=== PATIENT | male | born 1935 | race Caucasian/White ===

== ENCOUNTER → 2016-03-07 | Outpatient (REF) | payer MEDICARE ==
[~2016-03-07] MED LIST: /TAMS4CA; /WARF2TA; /WARF4TA; ALTA1.25; ALTA5CAP; ASPI1TAB PO; BABY81CH; CALCCHW12; CALCTAB43 PO; CARD4TAB2; CORE3.12; CORE6.25; CORE6.25 PO; COUM1TAB; COUM1TAB14 PO; COUM1TAB17 PO; COUM6TAB PO; COUMADIN; FOLI1TAB2 PO; FOSA35TA; ICAP; LEVO25TA5 PO; PRAV40TA2 PO; RAMI5CA PO; RANI150T PO; TAMS0.4C2 PO; THERGRAN; TRAM50TA2; TYLE325T5 PO; VICO5TAB; VITA100066 PO; VITMTA PO; WARF5VL
== END ==
LOC: M LAB REF 11:52
DX: D59.4 Other nonautoimmune hemolytic anemias (principal)

== ENCOUNTER 2017-10-15 07:23 | Emergency (ER) | payer MEDICARE ==
[2017-10-15] MEDS: LIDOCAINE 1% MDV 20ML VIAL SC (08:30)
[2017-10-15] MEDS: ADACEL/BOOSTRIX VACCINE (DIPHTH/PERTUSS/ACELL/TETANUS)0.5ML SYR (90715) IM (08:30)
[2017-10-15 08:41] LABS: BASO % 0.4 % (0.0-1.0); HEMATOCRIT 50.3 % (42.0-52.0); HEMOGLOBIN 16.7 g/dl (13.5-17.5); IMMATURE GRANULOCYTE % 0.6 % (0-3.0); LYMPH % 4.6 % (24.0-44.0); MEAN CORPUSCULAR HEMOGLOBIN 32.7 pg (27.0-33.0); MEAN CORPUSCULAR HGB CONC 33.2 g/dl (32.0-36.5); MEAN CORPUSCULAR VOLUME 98.4 fl (80.0-96.0); MONO # 0.2 10^3/uL (0.0-0.8); MONO % 4.6 % (0.0-5.0); NEUTROPHILS # 4.5 10^3/uL (1.8-7.7); NEUTROPHILS % 89.8 % (36.0-66.0); RED BLOOD COUNT 5.11 10^6/uL (4.30-6.10); RED CELL DISTRIBUTION WIDTH 13.5 % (11.5-14.5)
[2017-10-15 08:44] LABS: ANION GAP 8 MEQ/L (8-16); BLOOD UREA NITROGEN 30 MG/DL (7-18); CALCIUM LEVEL 9.3 MG/DL (8.8-10.2); CARBON DIOXIDE LEVEL 30 MEQ/L (21-32); CHLORIDE LEVEL 105 MEQ/L (98-107); CPK CREATINE PHOSPHOKINASE 334 U/L (39-308); CREATININE FOR GFR 0.71 MG/DL (0.70-1.30); GLOMERULAR FILTRATION RATE > 60.0 (>35); GLUCOSE, FASTING 105 MG/DL (70-100); POTASSIUM SERUM 4.5 MEQ/L (3.5-5.1); SODIUM LEVEL 143 MEQ/L (136-145); TROPONIN I < 0.02 NG/ML (< 0.10)
[2017-10-15 08:45] LABS: CK-MB VALUE MASS 3.5 NG/ML (<3.6); MB/CK RELATIVE INDEX 1.04 (< OR =4)
[2017-10-15 08:54] LABS: INR 1.61; PROTHROMBIN TIME 19.4 SECONDS (12.1-14.4)
[2017-10-15 08:55] LABS: PARTIAL THROMBOPLASTIN TIME 32.4 SECONDS (25.4-37.6)
[2017-10-15 09:04] LABS: LYMPH # 0.2 10^3/uL (1.5-4.5); PLATELET COUNT, AUTOMATED 79 10^3/uL (150-450); POSITIVE DIFF POS FLAG
[2017-10-15 09:05] LABS: IMMATURE PLATELET FRACTION % 3.6 % (0.0-10.9); PLATELET F 4.2
== END 2017-10-15 12:05 | disposition home or self-care (01) ==
LOC: M ED 07:23
DX: S02.2XXA Fracture of nasal bones, initial encounter for closed fracture (principal); S01.81XA Laceration without foreign body of other part of head, initial encounter; S50.311A Abrasion of right elbow, initial encounter; S50.312A Abrasion of left elbow, initial encounter; W10.1XXA Fall (on)(from) sidewalk curb, initial encounter; Y92.410 Unspecified street and highway as the place of occurrence of the external cause; I44.0 Atrioventricular block, first degree; I44.4 Left anterior fascicular block; I10 Essential (primary) hypertension; Z95.2 Presence of prosthetic heart valve; Z87.828 Personal history of other (healed) physical injury and trauma; Z91.041 Radiographic dye allergy status; I88.8 Other nonspecific lymphadenitis; Z91.013 Allergy to seafood; Z79.01 Long term (current) use of anticoagulants; Z79.82 Long term (current) use of aspirin; Z79.899 Other long term (current) drug therapy
CPT/HCPCS: 90715

== ENCOUNTER → 2017-12-24 | Outpatient (REF) | payer MEDICARE ==
[2017-12-24 13:55] LABS: INR 5.25
[2017-12-24 14:13] LABS: PROTHROMBIN TIME 49.6 SECONDS (12.1-14.4)
== END ==
LOC: M LAB REF 11:46
DX: I48.0 Paroxysmal atrial fibrillation (principal)
CPT/HCPCS: 85610

== ENCOUNTER → 2018-04-05 | Outpatient (REF) | payer MEDICARE ==
[~2018-04-05] MED LIST changes: +ASPI81TA85 PO; -CALCTAB43 PO; +CALCTAB74 PO; +FOLI1TAB11 PO; -FOLI1TAB2 PO; +RAMI1CAP24 PO; -RAMI5CA PO; +VIGA0.02
[2018-04-05 15:31] LABS: PROTHROMBIN TIME 53.4 SECONDS (12.1-14.4)
[2018-04-05 15:41] LABS: INR 5.76
== END ==
LOC: M LAB REF 15:16
PROVIDERS: ATTEND Nurse Practitioner Adult Health
DX: I48.0 Paroxysmal atrial fibrillation (principal); Z79.01 Long term (current) use of anticoagulants

== ENCOUNTER → 2018-05-24 | Outpatient (REF) | payer MEDICARE ==
[2018-05-24 14:59] LABS: INR 4.67; PROTHROMBIN TIME 45.2 SECONDS (12.1-14.4)
== END ==
LOC: M LAB REF 14:26
PROVIDERS: ATTEND Nurse Practitioner Adult Health
DX: I48.0 Paroxysmal atrial fibrillation (principal)

== ENCOUNTER → 2018-06-07 | Outpatient (REF) | payer MEDICARE ==
[~2018-06-07] MED LIST changes: -/TAMS4CA; -/WARF2TA; -/WARF4TA; -ASPI1TAB PO; +ASPI81TA26 PO; +COUM1TAB14; +COUM1TAB16; +FLOM0.4C39
[2018-06-07 17:52] LABS: INR 6.82
== END ==
LOC: M LAB REF 15:06
PROVIDERS: ATTEND Nurse Practitioner Adult Health
DX: I48.0 Paroxysmal atrial fibrillation (principal)

== ENCOUNTER 2018-09-13 15:55 | Inpatient (IN) | payer MEDICARE ==
[~2018-09-13] VITALS: Ht 177.8 cm; Wt 45.3 kg
[~2018-09-13 15:55] MED LIST changes: -ACET650T15 PO; -AMLO5TAB6 PO; -MIRT1TAB15 PO; -PATIENT COMMENTS; -TAMS1CAP17 PO; -WARF-23 PO
--- NOTE | 2018-09-13 16:53 | REP ---
CT brain without contrast: History: Altered mental status. Comparison brain CT study October 18, 2017. CT findings: Preliminary eeg technologist view is unremarkable. Visualized paranasal sinuses are clear. No significant scalp hematoma is seen. No skull fracture or bony destructive lesion is appreciated. There is moderate generalized atrophy. Advanced periventricular white matter changes consistent with small vessel atherosclerosis is seen. These findings are unchanged from the October 18, 2017 prior study. There is no evidence of intracranial hemorrhage, acute infarction, mass, extra-axial fluid collection, or midline shift. Vascular calcifications again noted. Impression: Chronic microvascular periventricular changes. Diffuse atrophy and vascular calcification. No acute intracranial abnormality. Electronically Signed by Saji Heck MD 09/13/2018 04:58 P
[2018-09-13 18:08] LABS: BASO % 0.3 % (0.0-1.0); HEMOGLOBIN 13.6 g/dl (13.5-17.5); LYMPH # 0.6 10^3/uL (1.5-4.5); LYMPH % 9.2 % (24.0-44.0); MEAN CORPUSCULAR HEMOGLOBIN 31.9 pg (27.0-33.0); MEAN CORPUSCULAR HGB CONC 31.6 g/dl (32.0-36.5); MEAN CORPUSCULAR VOLUME 100.9 fl (80.0-96.0); MONO # 0.7 10^3/uL (0.0-0.8); MONO % 9.8 % (0.0-5.0); NEUTROPHILS # 5.5 10^3/uL (1.8-7.7); NEUTROPHILS % 80.1 % (36.0-66.0); PLATELET COUNT, AUTOMATED 169 10^3/uL (150-450); RED BLOOD COUNT 4.26 10^6/uL (4.30-6.10); WHITE BLOOD COUNT 6.8 10^3/uL (4.0-10.0)
[2018-09-13] MEDS ORDERED: WARF-23 PO (18:11)
[2018-09-13] MEDS ORDERED: TAMS1CAP17 PO (18:11)
[2018-09-13] MEDS ORDERED: ACET650T15 PO (18:14)
[2018-09-13] MEDS ORDERED: PATIENT COMMENTS (18:15)
[2018-09-13 18:38] LABS: OSMOLALITY SERUM 303 MOSM/KG (280-301)
[2018-09-13] MEDS ORDERED: NS 1,000 ML IV SCH (18:45)
[2018-09-13 19:10] LABS: ALBUMIN 3.5 GM/DL (3.2-5.2); ALT/SGPT 23 U/L (12-78); BILIRUBIN,DIRECT 0.2 MG/DL (0.0-0.2); BILIRUBIN,TOTAL 0.8 MG/DL (0.2-1.0); BLOOD UREA NITROGEN 20 MG/DL (7-18); CARBON DIOXIDE LEVEL 28 MEQ/L (21-32); CHLORIDE LEVEL 110 MEQ/L (98-107); CK-MB VALUE MASS 7.3 NG/ML (<3.6); CPK CREATINE PHOSPHOKINASE 819 U/L (39-308); CREATININE FOR GFR 0.69 MG/DL (0.70-1.30); GLOMERULAR FILTRATION RATE > 60.0 (>35); GLUCOSE, FASTING 84 MG/DL (70-100); MB/CK RELATIVE INDEX 0.89 (< OR =4); POTASSIUM SERUM 3.8 MEQ/L (3.5-5.1); SODIUM LEVEL 146 MEQ/L (136-145); TOTAL PROTEIN 6.6 GM/DL (6.4-8.2); TROPONIN I 0.21 NG/ML (< 0.10)
--- NOTE | 2018-09-13 19:25 | REP ---
LEFT SHOULDER, THREE VIEWS: Three views left shoulder performed. There is a fracture of the distal clavicle. The clavicular shaft is elevated. The distal end of the clavicle is still well aligned with the acromion. There are mild degenerative changes at the glenohumeral joint. Glenohumeral joint is well aligned. IMPRESSION: Fracture distal clavicle with elevation of the clavicular shaft. Distal end of the clavicle is still aligned with the acromion. Electronically Signed by Seth Knapp MD 09/15/2018 09:10 P
[2018-09-13 20:19] LABS: INR 4.58; PROTHROMBIN TIME 43.6 SECONDS (11.8-14.0)
[2018-09-13] MEDS ORDERED: OLANZapine INTRAMUSCULAR 10 MG VIAL (S0166) IM ONE (20:30)
--- NOTE | 2018-09-13 21:18 | ECGEPIP ---
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
[2018-09-13 22:44] LABS: CK-MB VALUE MASS 6.7 NG/ML (<3.6); MB/CK RELATIVE INDEX 0.75 (< OR =4); TROPONIN I 0.2 NG/ML (< 0.10)
[2018-09-13] MEDS ORDERED: MIRT1TAB15 PO (23:37)
[2018-09-13] MEDS ORDERED: AMLO5TAB6 PO (23:37)
--- NOTE | 2018-09-13 23:54 | HPEPDOC ---
General Date of Admission 09/13/2018 Date of Service: Sep 13, 2018 Attending Physician: SHILPI CEDILLO MD Chief Complaint The patient is a 83-year-old male admitted with a reason for visit of Syncope On Thinners. Source: RN notes reviewed, EMS notes reviewed Exam Limitations: Clinical conditions Timing/Duration: Unsure Severity: Moderate Associated Symptoms: Unobtainable History of Present Illness Patient is an 83-year-old male, brought to the emergency room after he was found by family in his yard at 11:00 this morning. Family state patient has been increasingly confused, not eating well, generalized weakness for about 2 weeks now. He was found on his front lawn, where he had gaby for an unknown amount of time. Patient was unable to provide any histroy due to mental status change. Family members supposedly feel patient is unsafe to continue to live alone. In the ED Head CT showed moderate generalized atrophy, chronic microvascular periventricular changes, diffuse atrophy and calcification, but was negative for acute intracranial abnormality. Left shoulder x-ray showed a fracture of the distal clavicle with clavicular shaft elevation. The distal end of the clavicle was still well aligned with the acromion. Troponin, although abnormal at 0.2 was non-incremental with subsequent troponin been also 0.2. Laboratory data also revealed dehydration with BUN of 20 and sodium of 146. Total creatinine kinase was elevated at 819. Home Medications Scheduled Acetaminophen (Acetaminophen ER) 650 Mg Tablet.er, 1,300 MG PO DAILY, (Reported) Amlodipine Besylate (Amlodipine Besylate) 5 Mg Tablet, 5 MG PO DAILY, (Reported) Aspirin (Aspir 81) 81 Mg Tab, 81 MG PO QHS, (Reported) Cholecalciferol (Vitamin D3) (Vitamin D3) 1,000 Unit Tab, 1,000 UNIT PO DAILY, (Reported) Folic Acid (Folic Acid) 1 Mg Tab, 1 MG PO DAILY, (Reported) Mirtazapine (Mirtazapine) 15 Mg Tab.rapdis, 15 MG PO QHS, (Reported) Multivitamins (Thera M Plus Tablet) 1 Tab Tab, 1 TAB PO DAILY, (Reported) Pravastatin Sodium (Pravastatin Sodium) 40 Mg Tab, 40 MG PO QHS, (Reported) Ranitidine HCl (Ranitidine HCl) 150 Mg Tab, 1 TAB PO BID, (Reported) Tamsulosin Hcl (Tamsulosin HCl) 0.4 Mg Capsule, 0.4 MG PO DAILY, (Reported) Warfarin Sodium (Warfarin Sodium) 5 Mg Tablet, 2.5 MG PO ASDIRECTED, (Reported) FAMILY MEMBERS STATE PATIENT WAS TOLD TO TAKE .5 OF HIS 5MG TABLET TODAY ONLY. DR. CHAUHAN TOLD HIM NOT TO TAKE ANY MORE THIS WEEKEND UNTIL HIS SCHEDULED APPOINTMENT ON SUNDAY. 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, HE LIVES ALONE AND FAMILY IS NOT SURE WHAT OR IF HE TAKES WHAT HE HAS BEEN PRESCRIBED Allergies Coded Allergies: Contrast Media (Verified Allergy, Unknown, 09/15/13) shellfish derived (Verified Allergy, Unknown, 09/13/18) A-FIB/CHADSVASC A-FIB History Current/History of A-Fib/PAF?: Yes Current PO Anticoag Therapy: Yes Review of Systems Other systems Review of systems not completed due to patient's current mental status Physical Examination Other physical findings GENERAL: frail appearing elderly male with sitter at bedside SKIN : Warm, dry intact HEENT: Atraumatic, normocephalic, PERRL, moist mucous membrane CARDIOVASCULAR: Regular rate and rhythm, S1S2, no JVD, no edema, distal pulses + palpable RESP: CTAB, no accessory muscle use noted ABDOMEN: BS+ non distended MS: no joint deformities NEURO: sedated PSYCH: sedated Vital Signs Vital Signs Date Time Temp Pulse Resp B/P (MAP) Pulse Ox O2 Delivery O2 Flow Rate FiO2 09/13/18 22:06 72 09/13/18 22:00 144/73 (96) 92 09/13/18 18:30 18 09/13/18 15:55 96.4 Room Air Laboratory Data Labs 24H Laboratory Tests 2 09/13/18 17:56: Immature Granulocyte % (Auto) 0.6, White Blood Count 6.8, Red Blood Count 4.26L, Hemoglobin 13.6, Hematocrit 43.0, Mean Corpuscular Volume 100.9H, Mean Corpuscular Hemoglobin 31.9, Mean Corpuscular Hemoglobin Concent 31.6L, Red Cell Distribution Width 14.3, Platelet Count 169, Neutrophils (%) (Auto) 80.1H, Lymphocytes (%) (Auto) 9.2L, Monocytes (%) (Auto) 9.8H, Eosinophils (%) (Auto) 0.0, Basophils (%) (Auto) 0.3, Neutrophils # (Auto) 5.5, Lymphocytes # (Auto) 0.6L, Monocytes # (Auto) 0.7, Eosinophils # (Auto) 0.0, Basophils # (Auto) 0.0, Nucleated Red Blood Cells % (auto) 0.0, Anion Gap 8, Glomerular Filtration Rate > 60.0, Osmolality 303H, Calcium Level 9.0, Aspartate Amino Transf (AST/SGOT) 49H, Alanine Aminotransferase (ALT/SGPT) 23, Alkaline Phosphatase 187H, Total Bilirubin 0.8, Direct Bilirubin 0.2, Ammonia 20, Total Creatine Kinase 819H, Creatine Kinase MB 7.3H, Creatine Kinase MB Relative Index 0.89, Troponin I 0.21H, Total Protein 6.6, Albumin 3.5, Albumin/Globulin Ratio 1.13, Thyroid Stimulating Hormone (TSH) 3.600 09/13/18 19:57: Prothrombin Time 43.6H, Prothromb Time International Ratio 4.58 09/13/18 21:58: Total Creatine Kinase 888H, Creatine Kinase MB 6.7H, Creatine Kinase MB Relative Index 0.75, Troponin I 0.20H CBC/BMP Laboratory Tests 09/13/18 17:56 Red Blood Count 4.26 L, Mean Corpuscular Volume 100.9 H, Mean Corpuscular Hemoglobin 31.9, Mean Corpuscular Hemoglobin Concent 31.6 L, Red Cell Distribution Width 14.3, Neutrophils (%) (Auto) 80.1 H, Lymphocytes (%) (Auto) 9 .2 L, Monocytes (%) (Auto) 9.8 H, Eosinophils (%) (Auto) 0.0, Basophils (%) (Auto) 0.3, Neutrophils # (Auto) 5.5, Lymphocytes # (Auto) 0.6 L, Monocytes # (Auto) 0.7, Eosinophils # (Auto) 0.0, Basophils # (Auto) 0.0 Assessment/Plan Syncope and Collapse -Family members report patient has had poor intake for over 2 weeks with increased confusion -Syncope and collapse, possibly due to dehydration and poor oral intake -Continue IV fluids with half-normal saline at 80cc/hr -2-D echocardiogram to evaluate ejection fraction -Troponin trend is flat and non-incremental -Carotid Doppler to assess for vascular competency Supratherapeutic INR -presenting INR 4.8 -hold coumadin till mental status is normalized -check INR daily Hypernatremia - Likely due to Dehydration -Rehydration therapy with half normal saline and labs monitoring Left shoulder fracture -Orthopedic surgery will need to be consulted for evaluation and recommendations -PT/OT consult for assessment of rehabilitation needs -Social work consult for assessment of home environment and possible need for placement ?Dementia/Delirium -Continue one-to-one sitter -Antipsychotic administered in the emergency room with good effect -Reevaluation for need for continuation of same when patient is awake, alert DVT prophylaxis -On coumadin with presenting INR 4,58 -hold Warfarin at this time due to reported dementia and high risk for bleed Advance Directives -At this time patient is full code status pending when he is alert to state wishes or MOLST available for implementation -Anticipate discharge disposition based on PT/OT recommendations, rehab needs Plan / VTE VTE Prophylaxis Ordered?: Yes BUBBA BENDER [facility] Sep 13, 2018 23:53
[2018-09-14] MEDS ORDERED: NS 0.45% 1,000 ML IV SCH (00:30)
[2018-09-14 02:00] VITALS: BP 153/85
[2018-09-14 06:00] VITALS: BP 95/59
[2018-09-14] MEDS ORDERED: HEPARIN SOD (PORCINE) 5000 UNITS/ML VIAL SC SCH (06:00)
--- NOTE | 2018-09-14 06:08 | ECGEPIP ---
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
[2018-09-14 06:21] LABS: HEMATOCRIT 41.4 % (42.0-52.0); HEMOGLOBIN 13.6 g/dl (13.5-17.5); MEAN CORPUSCULAR HEMOGLOBIN 32.7 pg (27.0-33.0); MEAN CORPUSCULAR HGB CONC 32.9 g/dl (32.0-36.5); MEAN CORPUSCULAR VOLUME 99.5 fl (80.0-96.0); PLATELET COUNT, AUTOMATED 160 10^3/uL (150-450); RED BLOOD COUNT 4.16 10^6/uL (4.30-6.10)
[2018-09-14 06:32] LABS: INR 4.33; PROTHROMBIN TIME 41.7 SECONDS (11.8-14.0)
[2018-09-14 06:46] LABS: ALBUMIN 3.1 GM/DL (3.2-5.2); ALT/SGPT 21 U/L (12-78); BILIRUBIN,TOTAL 0.7 MG/DL (0.2-1.0); BLOOD UREA NITROGEN 19 MG/DL (7-18); CALCIUM LEVEL 8.8 MG/DL (8.8-10.2); CARBON DIOXIDE LEVEL 30 MEQ/L (21-32); CHLORIDE LEVEL 111 MEQ/L (98-107); CREATININE FOR GFR 0.55 MG/DL (0.70-1.30); GLOMERULAR FILTRATION RATE > 60.0 (>35); GLUCOSE, FASTING 85 MG/DL (70-100); MAGNESIUM LEVEL 2.3 MG/DL (1.8-2.4); POTASSIUM SERUM 3.1 MEQ/L (3.5-5.1); SODIUM LEVEL 147 MEQ/L (136-145); TOTAL PROTEIN 6.3 GM/DL (6.4-8.2)
[2018-09-14] MEDS ORDERED: POTASSIUM CHLORIDE 10 MEQ SR TABLET PO ONE (08:00)
[2018-09-14 08:51] LABS: CK-MB VALUE MASS 4.1 NG/ML (<3.6); MB/CK RELATIVE INDEX 0.7 (< OR =4); TROPONIN I 0.19 NG/ML (< 0.10)
--- NOTE | 2018-09-14 08:57 | CR ---
DATE OF CONSULTATION: 09/14/2018 SUBJECTIVE: The patient was brought into the emergency room after being found down by his family yesterday morning. He was brought into the emergency department and imaging obtained showed a left distal clavicle fracture and we were consulted this morning for evaluation. No other active orthopedic complaints. source of information is the EMR. OBJECTIVE: The patient is asleep, comfortable in bed. He is not responding to commands at this point, not conversant. Focused examination of his left shoulder: There is ecchymosis diffusely about the shoulder joint. The prominent end of the distal clavicle fracture is palpable, but is not threatening the skin at all. Distally, his fingertips are pink, warm and well-perfused. Gentle range of motion about the ipsilateral elbow, wrist and hand does not elicit any obvious sign of pain and grossly does not show sign of new acute trauma. X-rays of the left shoulder show a 100% displaced distal one-third clavicle fracture. ASSESSMENT: Left distal clavicle fracture. PLAN: For the clavicle, treatment with a sling at this point for comfort is appropriate. Gentle range of motion of the elbow, wrist and hand as tolerated to prevent stiffness. Pain control and follow-up with the orthopedic practice in 1-2 weeks for repeat examination. Follow-up earlier as needed to continue to monitor the skin site and for signs of pending compromise, reconsult earlier although I do not think this is likely to occur at this time. ALEK
[2018-09-14] MEDS ORDERED: amLODIPine 5 MG TAB PO SCH (09:00)
[2018-09-14] MEDS: MULTIVITAMINS/MINERALS THERAP 1 TAB PO SCH (09:57)
[2018-09-14] MEDS: FOLIC ACID 1 MG TAB PO SCH (09:57)
[2018-09-14] MEDS: VITAMIN D 1,000 INTERNATIONAL UNITS TABLET PO SCH (09:57)
[2018-09-14] MEDS: TAMSULOSIN 0.4 MG CAP PO SCH (09:57)
[2018-09-14 14:00] VITALS: BP 149/91
--- NOTE | 2018-09-14 14:23 | REP ---
CAROTID ULTRASOUND: Real-time ultrasound evaluation and duplex Doppler interrogation of the extracranial carotid vasculature is performed. There is mild plaquing and narrowing in both carotid bulbs extending into the internal and external carotid arteries. Luminal narrowing is less than 50%. There is no evidence of hemodynamically significant stenosis of either internal carotid artery. Normal flow velocities are seen. The vertebral arteries demonstrate normal direction of flow. RIGHT LEFT Peak systolic velocity ICA 40.8 cm/s 52 cm/s End diastolic velocity ICA 7.1 cm/s 12.4 cm/s Peak systolic velocity CCA 50.2 cm/s 42.9 cm/s Peak systolic velocity ECA 41.1 cm/s 36.1 cm/s ICA/CCA ratio 0.81 1.21 IMPRESSION: Bilateral luminal narrowing of the internal carotid arteries less than 50%. No evidence of hemodynamically significant stenosis. Electronically Signed by Seth Knapp MD 09/14/2018 02:15 P
[2018-09-14 19:55] LABS: CK-MB VALUE MASS 3.3 NG/ML (<3.6); MB/CK RELATIVE INDEX 0.78 (< OR =4); TROPONIN I 0.12 NG/ML (< 0.10)
[2018-09-14] MEDS: ASPIRIN 81 MG ENTERIC TAB PO SCH (20:37)
[2018-09-14] MEDS: FAMOTIDINE 20 MG TAB PO SCH (20:37)
[2018-09-14] MEDS: PRAVASTATIN 20 MG TAB PO SCH (20:37)
[2018-09-14] MEDS ORDERED: METOPROLOL TART 12.5 MG PER 1/2 TAB PO SCH (21:00)
--- NOTE | 2018-09-14 21:50 | REPVR ---
EXAM: XR Chest, 1 View EXAM DATE/TIME: 09/14/2018 8:42 PM CLINICAL HISTORY: 83 years old, male; Cardiovascular condition or disease; Atrial fibrillation; Additional info: A-fib w/rvr TECHNIQUE: Imaging protocol: XR of the chest, 1 view. COMPARISON: CR Chest, 2 view PA, Lat 10/15/2017 9:06 AM FINDINGS: Lungs: There is central pulmonary vascular congestion. The lung bases are obscured. The upper lungs are clear of infiltrate. There is persistent aspirated barium in the right lower lobe medially. This was present on the prior x-ray. Pleural space: There are moderate bilateral pleural effusions. These were not present on the prior x-ray. Heart/Mediastinum: There is cardiomegaly. Status post valve replacement. Bones/joints: Unremarkable. IMPRESSION: 1. Cardiomegaly, pulmonary vascular congestion and moderate bilateral pleural effusions. 2. Lung bases are obscured by the effusions and cannot be evaluated. The upper lungs are clear of infiltrate. Electronically signed by: Nayan Mckeon On 09/14/2018 21:49:39 PM
[2018-09-14 22:00] VITALS: BP 138/60
--- NOTE | 2018-09-15 01:44 | IPNPDOC ---
Subjective Date Seen The patient was seen on 09/14/18. Subjective Chief Complaint/HPI Patient is pleasantly confused. Does not know that he is in the hospital. Denies any chest pain or SOB or cough. He did complain of soreness in the left shoulder. He has been requiring 2 liters of oxygen. As per his sister and nieces whom i met at bedside he has been deteriorating over the past 1 year. He has become very forgetful in creasing days of confusion sometimes he would recognize them some days not. They would prepare a whole weeks food the put it in his refrigerator so that he would only take the meals out and warm them up in the microwave. But they would come and check that he has not eaten his meals . He does not remember to eat. He has to be offered food and instructed and reminded to eat then only he eats. He has lost a lot of weight. This evening he was noted to have intermittent aflutter on tele and Afib with rvr. I repeated an EKG and cardiac markers. The EKG leds v4 and v5 seems to have been too closely placed so shows a different configuration compared t yesterday. , EKG showed LBBB with Afib with rvr. Patient did not have any complaints. His cardiac makers are coming down. Objective Physical Examination General Exam: Positive: Alert, Cooperative, No Acute Distress, Other (Bitemporal wasting, cachexia) Eye Exam: Positive: Conjunctiva & lids normal; Negative: Sclera icteric ENT Exam: Positive: Atraumatic, Mucous membr. moist/pink, Pharynx Normal Neck Exam: Positive: Supple Chest Exam: Positive: Clear to auscultation, Diminished (at the bases) Heart Exam: Positive: Tachycardic, Irregular Rhythm, Normal S1, Normal S2, Other (click present.) Telemetry: Positive: Atrial fibrillation Abdomen Exam: Positive: Normal bowel sounds, Soft; Negative: Tenderness, Hepatospenomegaly Extremity Exam: Negative: Clubbing, Cyanosis, Edema Psych Exam: Negative: Memory Intact, Oriented x 3 Assessment /Plan Assessment 83 year old male with progressive dementia valve replacement, dysphagia s/p dilatation, Hypertension, hyperlipidemia, BPH, was brought in to the ED after he was found down in his front lawn by his family for an unknown duration. He was admitted for Syncope. Syncope and Collapse due to dehydration form poor oral intake check orthostatics. Also has Afib / Flutter, will continue tele monitor to monitor for any severe bradycardia , SSS, Tachy lamin syndrome. Carotid US no significant stenosis Echo done Hypoxia will get CXR tomorrow if hypxia persists. Afib/Aflutter with RvR will start metoprolol. anticoagulated. Hypokalemia replaced. Left distal clavicular fracture seen by ortho, sling, pain control. Advanced Dementia will need salvage determiner placement. Severe protein Calorie malnutrition due to dementia and advanced age. BMI of 1.47, has bitemporal wasting and generalized wasting Valve replaced status with metallic valve on Coumadin INR supra therapeutic. Coumadin on hold. Hypernatremia Likely due to intravascular Dehydration will continue gentle hydration and will watch for failure. 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 Dilated in 2016 will continue to monitor DVT prophylaxis On coumadin. Advance Directives DNR. Plan/VTE VTE Prophylaxis Ordered?: Yes VS, I&O, 24H, Fishbone Vital Signs/I&O Vital Signs Date Time Temp Pulse Resp B/P (MAP) Pulse Ox O2 Delivery O2 Flow Rate FiO2 09/14/18 22:00 97.9 150 18 138/60 (86) 98 2.0 09/14/18 01:55 Nasal Cannula I&O- Last 24 Hours up to 6 AM 09/15/18 06:00 Intake Total 1457 ml Output Total 100 ml Balance 1357 ml Laboratory Data 24H LABS Laboratory Tests 2 09/14/18 05:35: Nucleated Red Blood Cells % (auto) 0.0, Prothrombin Time 41.7H, Prothromb Time International Ratio 4.33, Anion Gap 6L, Glomerular Filtration Rate > 60.0, Blood Urea Nitrogen 19H, Creatinine 0.55L, Sodium Level 147H, Potassium Level 3.1L, Chloride Level 111H, Carbon Dioxide Level 30, Calcium Level 8.8, Aspartate Amino Transf (AST/SGOT) 47H, Alanine Aminotransferase (ALT/SGPT) 21, Alkaline Phosphatase 174H, Total Bilirubin 0.7, Total Protein 6.3L, Albumin 3.1L, Magnesium Level 2.3, Albumin/Globulin Ratio 0.97L, Procalcitonin 0.05 09/14/18 08:05: Ammonia 20, Total Creatine Kinase 584H, Creatine Kinase MB 4.1H, Creatine Kinase MB Relative Index 0.70, Troponin I 0.19H 09/14/18 16:46: Urine Color MALIA, Urine Appearance CLEAR, Urine pH 5.0, Urine Specific [place] 1.026, Urine Protein 1+H, Urine Glucose (UA) NEGATIVE, Urine Ketones NEGATIVE, Urine Blood 2+H, Urine Nitrite NEGATIVE, Urine Bilirubin NEGATIVE, Urine Urobilinogen 0.2, Urine Leukocyte Esterase NEGATIVE, Urine WBC (Auto) 3, Urine RBC (Auto) 80H, Urine Hyaline Casts (Auto) 0, Urine Bacteria (Auto) NEGATIVE, Urine Squamous Epithelial Cells 1, Urine Mucus (Auto) SMALL, Urine Sperm (Auto) 09/14/18 18:57: Total Creatine Kinase 423H, Creatine Kinase MB 3.3, Creatine Kinase MB Relative Index 0.78, Troponin I 0.12#H CBC/BMP Laboratory Tests 09/14/18 05:35 Red Blood Count 4.16 L, Mean Corpuscular Volume 99.5 H, Mean Corpuscular Hemoglobin 32.7, Mean Corpuscular Hemoglobin Concent 32.9, Red Cell Distribution Width 14.3, Calcium Level 8.8, Aspartate Amino Transf (AST/SGOT) 47 H, Alanine Aminotransferase (ALT/SGPT) 21, Alkaline Phosphatase 174 H, Total Bilirubin 0.7, Total Protein 6.3 L, Albumin 3.1 L DALI RICH MD Sep 15, 2018 01:44
[2018-09-15 02:00] VITALS: BP 161/89
[2018-09-15] MEDS ORDERED: FUROSEMIDE 40 MG/4 ML VIAL (J1940) IV ONE (05:30)
[2018-09-15 06:00] VITALS: BP 155/83
[2018-09-15] MEDS: METOPROLOL TART 25 MG TABLET PO SCH ×3 (06:00→18:53)
[2018-09-15 06:51] LABS: HEMATOCRIT 44.8 % (42.0-52.0); HEMOGLOBIN 14.4 g/dl (13.5-17.5); MEAN CORPUSCULAR HGB CONC 32.1 g/dl (32.0-36.5); MEAN CORPUSCULAR VOLUME 96.6 fl (80.0-96.0); PLATELET COUNT, AUTOMATED 182 10^3/uL (150-450); RED BLOOD COUNT 4.64 10^6/uL (4.30-6.10); WHITE BLOOD COUNT 6.3 10^3/uL (4.0-10.0)
[2018-09-15 07:05] LABS: INR 2.51; PROTHROMBIN TIME 26.9 SECONDS (11.8-14.0)
[2018-09-15 07:41] LABS: BLOOD UREA NITROGEN 15 MG/DL (7-18); CALCIUM LEVEL 9.2 MG/DL (8.8-10.2); CARBON DIOXIDE LEVEL 29 MEQ/L (21-32); CHLORIDE LEVEL 109 MEQ/L (98-107); CREATININE FOR GFR 0.63 MG/DL (0.70-1.30); GLOMERULAR FILTRATION RATE > 60.0 (>35); GLUCOSE, FASTING 86 MG/DL (70-100); MAGNESIUM LEVEL 2.3 MG/DL (1.8-2.4); POTASSIUM SERUM 3.8 MEQ/L (3.5-5.1); SODIUM LEVEL 143 MEQ/L (136-145)
[2018-09-15] MEDS: TAMSULOSIN 0.4 MG CAP PO SCH (08:34)
[2018-09-15] MEDS: FOLIC ACID 1 MG TAB PO SCH (08:34)
[2018-09-15] MEDS: VITAMIN D 1,000 INTERNATIONAL UNITS TABLET PO SCH (08:35)
[2018-09-15] MEDS: MULTIVITAMINS/MINERALS THERAP 1 TAB PO SCH (08:35)
[2018-09-15] MEDS: FAMOTIDINE 20 MG TAB PO SCH ×2 (08:35→20:00)
[2018-09-15] MEDS: ACETAMINOPHEN TAB 650MG DOSE (2X325MG) PO PRN ×2 (08:36→12:41)
[2018-09-15 10:00] VITALS: BP_SYST 127; BP_SYST 165; BP_DIAS 51; BP_DIAS 70
--- NOTE | 2018-09-15 10:04 | ECHO ---
DATE OF SERVICE: 09/14/2018 AGE: 83. REFERRING PROVIDER: BUD Cheema PATIENT LOCATION: Room 4223. REASON FOR THE STUDY: Syncope, abnormal troponin. 2D MEASUREMENTS: IVS: 1.2 cm LV: 5.1 cm LVPW: 1.2 cm LA: 3.7 cm Aorta: 3.2 cm RV: 2.5 cm IVC: 1.3 cm DOPPLER MEASUREMENTS: Peak velocity across the aortic valve: 1.6 m/s Peak velocity across the LVOT: 0.63 m/s Peak gradient across the aortic valve: 10 mmHg Mitral E: 1.1 Mitral A: 0.39 with a ratio of 2.7 Maximum tricuspid valve velocity: 3.6 m/s 2D COMMENTS: 1. Normal left ventricular size with normal left ventricular wall thickness but a moderately depressed global left ventricular systolic function. The estimated left ventricular systolic ejection fraction is 30% to 35%. 2. The left atrium and the right atrium appeared to be mildly enlarged. The right ventricle also appeared to be mildly enlarged but seems to be ese well. 3. The atrial septum appeared to be normal without evidence of defect or shunt. 4. Normal aortic root. 5. No pericardial effusion seen. 6. Mechanical bioprosthetic valve noted in the aortic valve position, leaflet excursion appeared to be normal. Mildly calcified mitral annulus with normal anterior mitral valve leaflet motion. Normal tricuspid valve and pulmonic valve. The proximal pulmonary artery branches were not well visualized. 7. The inferior vena cava was normal in size, central venous pressure might be normal. 8. There was increased echogenicity consistent with smoke noted in the left ventricle, and this is related to blood stasis, putting the patient at high risk to develop intracardiac thrombi. DOPPLER: It detects moderate mitral regurgitation, moderate tricuspid regurgitation, and mild pulmonic regurgitation. There was trace to mild aortic regurgitation with minimal perivalvular leak. IMPRESSION: 1. Moderate global left ventricular systolic dysfunction with regional wall motion abnormalities consistent with probably underlying coronary artery disease. 2. Mechanical prosthetic aortic valve with normal function but with trace to mild aortic regurgitation and possible minimal perivalvular leak. 3. Mildly enlarged left atrium with mitral annulus calcification and moderate mitral regurgitation. 4. Moderate tricuspid regurgitation with moderate pulmonary hypertension and dilated right heart chambers. 5. Mild pulmonic regurgitation. MTDD
[2018-09-15 14:00] VITALS: BP 92/43
--- NOTE | 2018-09-15 15:10 | IPNPDOC ---
Subjective Date Seen The patient was seen on 09/15/18. Subjective Chief Complaint/HPI Pleasantly confused. Does not offer any complaints today. Always wants to get out of the bed and go for a walk. no fever or chills, no chest pain or sob, patient is having difficulty i urination. Will straight cath him if needed. Objective Physical Examination General Exam: Positive: Alert, Cooperative, No Acute Distress, Other (Bitemporal wasting, cachexia) Eye Exam: Positive: Conjunctiva & lids normal; Negative: Sclera icteric ENT Exam: Positive: Atraumatic, Mucous membr. moist/pink, Pharynx Normal Neck Exam: Positive: Supple Chest Exam: Positive: Clear to auscultation, Diminished (at the bases) Heart Exam: Positive: Tachycardic, Irregular Rhythm, Normal S1, Normal S2, Other (click present.) Telemetry: Positive: Atrial fibrillation Abdomen Exam: Positive: Normal bowel sounds, Soft; Negative: Tenderness, Hepatospenomegaly Extremity Exam: Negative: Clubbing, Cyanosis, Edema Psych Exam: Negative: Memory Intact, Oriented x 3 Assessment /Plan Assessment 83 year old male with progressive dementia valve replacement, dysphagia s/p dilatation, Hypertension, hyperlipidemia, BPH, was brought in to the ED after he was found down in his front lawn by his family for an unknown duration. He was admitted for Syncope. Syncope and Collapse may be cardiac Has Afib / Flutter with RVR, valvular heart disease however dehydration form poor oral intake may also have added to the problem. will continue tele monitor to monitor for any severe bradycardia , SSS, Tachy lamin syndrome. Carotid US no significant stenosis Echo done Hypoxia due to CHF exacerbation features of CHF on chest xray though this could be after fluid resuscitation will give lasix Afib/Aflutter with RvR will start metoprolol. anticoagulated. Acute urinary retention needed coude for insertion of brooks Hypokalemia replaced. Left distal clavicular fracture seen by ortho, sling, pain control. Advanced Dementia will need alf placement. Severe protein Calorie malnutrition due to dementia and advanced age. BMI of 1.47, has bitemporal wasting and generalized wasting Valve replaced status with metallic valve on Coumadin INR in therapeutic range. Hypernatremia Likely due to intravascular Dehydration will continue gentle hydration and will watch for failure. 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 Dilated in 2016 will continue to monitor DVT prophylaxis On coumadin. Advance Directives DNR. Plan/VTE VTE Prophylaxis Ordered?: Yes VS, I&O, 24H, Fishbone Vital Signs/I&O Vital Signs Date Time Temp Pulse Resp B/P (MAP) Pulse Ox O2 Delivery O2 Flow Rate FiO2 09/15/18 12:40 128/84 09/15/18 10:00 98.3 78 18 96 2.0 09/14/18 01:55 Nasal Cannula I&O- Last 24 Hours up to 6 AM 09/15/18 06:00 Intake Total 1457 ml Output Total 350 ml Balance 1107 ml Laboratory Data 24H LABS Laboratory Tests 2 09/14/18 16:46: Urine Color MALIA, Urine Appearance CLEAR, Urine pH 5.0, Urine Specific Lane 1.026, Urine Protein 1+H, Urine Glucose (UA) NEGATIVE, Urine Ketones NEGATIVE, Urine Blood 2+H, Urine Nitrite NEGATIVE, Urine Bilirubin NEGATIVE, Urine Urobilinogen 0.2, Urine Leukocyte Esterase NEGATIVE, Urine WBC (Auto) 3, Urine RBC (Auto) 80H, Urine Hyaline Casts (Auto) 0, Urine Bacteria (Auto) NEGATIVE, Urine Squamous Epithelial Cells 1, Urine Mucus (Auto) SMALL, Urine Sperm (Auto) 09/14/18 18:57: Total Creatine Kinase 423H, Creatine Kinase MB 3.3, Creatine Kinase MB Relative Index 0.78, Troponin I 0.12#H 09/15/18 06:35: Nucleated Red Blood Cells % (auto) 0.0, Prothrombin Time 26.9H, Prothromb Time International Ratio 2.51, Anion Gap 5L, Glomerular Filtration Rate > 60.0, Blood Urea Nitrogen 15, Creatinine 0.63L, Sodium Level 143, Potassium Level 3.8#, Chloride Level 109H, Carbon Dioxide Level 29, Calcium Level 9.2, Magnesium Level 2.3 CBC/BMP Laboratory Tests 09/15/18 06:35 Red Blood Count 4.64, Mean Corpuscular Volume 96.6 H, Mean Corpuscular Hemoglobin 31.0, Mean Corpuscular Hemoglobin Concent 32.1, Red Cell Distribution Width 14.2, Calcium Level 9.2 DALI RICH MD Sep 15, 2018 15:10
[2018-09-15] MEDS ORDERED: guaiFENesin SYRUP 200 MG/10 ML UDC PO PRN (15:15)
[2018-09-15] MEDS ORDERED: FUROSEMIDE 20 MG/2 ML VIAL (J1940) IV ONE (16:00)
[2018-09-15] MEDS ORDERED: WARFARIN SOD 3 MG TAB PO SCH (17:00)
[2018-09-15] MEDS: KETOROLAC 30 MG/ML VIAL (J1885) IV PRN (17:55)
[2018-09-15 18:00] VITALS: BP 129/49
--- NOTE | 2018-09-15 19:11 | ECGEPIP ---
[facility] Test Date: 2018-09-14 Pat Name: SUSAN VALENCIA Department: Room: [place] [address] Gender: Male Measurement Technician: SHANNA : 1935 Requested By: DALI RICH Order Number: [id number] Reading MD: Brody Clements Measurements Intervals [place] Rate: 119 P: 151 MI: 179 QRS: QRSD: 138 T: 130 QT: 354 QTc: 499 Interpretive Statements ATRIAL FIBRILLATION WITH A RAPID VENTRICULAR RESPONSE MARKED LEFT AXIS DEVIATION INTRAVENTRICULAR CONDUCTION DELAY/LEFT BUNDLE-BRANCH BLOCK MOST RECENT TRACING ON 09/13/2018 AT 8:00 P.M., HEART RATE IS NOW FASTER Electronically Signed on 09-15-2018 19:11:00 EDT by Brody Clements
[2018-09-15] MEDS: ASPIRIN 81 MG ENTERIC TAB PO SCH (20:00)
[2018-09-15] MEDS: PRAVASTATIN 20 MG TAB PO SCH (20:00)
--- NOTE | 2018-09-15 21:38 | IPN ---
DATE: 09/14/2018 SUBJECTIVE: Patient examined at bedside. No reported issues overnight. He continues to be confused and overall a poor historian, unable to provide much information. Per nursing staff, he is doing well this morning overall. There is no current family in the room to provide further information. OBJECTIVE: PHYSICAL EXAMINATION: VITAL SIGNS: Temperature 97.7, pulse 76, respirations 18, blood pressure 95/59, mean arterial pressure (MAP) of 71, pulse oximetry 92% on 2 liters nasal cannula, which he is on chronically. GENERAL: Resting comfortably in bed, in no acute distress and pleasantly confused. Minimally conversant at baseline, but able to follow commands. Emaciated, frail-appearing elderly male. HEENT: Normocephalic, atraumatic. No visible trauma. Bitemporal wasting. NECK: Supple. Dry mucous membranes. CARDIOVASCULAR: Regular rate and rhythm. S2 louder than S1 with a blowing systolic murmur. RESPIRATIONS: Clear lungs throughout without any adventitious sounds. No wheezing, rhonchi or rales. CHEST WALL: There is significant ecchymosis of the left shoulder region where he fell and has a clavicular fracture. Left shoulder is significantly elevated compared to the right with what appears to be soft, superficial hematoma that is nontender when palpated. ABDOMEN: Normoactive bowel sounds. Soft, nontender, nondistended. Concave. MUSCULOSKELETAL: Decreased range of motion of the left shoulder from the recent fall. Has muscle wasting throughout. Metallurgical Analyst strength equal bilaterally. EXTREMITIES: No peripheral edema or calf tenderness. NEUROLOGIC: Is confused and able to provide minimal information. Does not know person, place or location. LABORATORY DATA: WBC 6, hemoglobin and hematocrit (H and H) 13.6 and 41.4, platelets 160. Sodium 147, potassium 3.1, BUN 19, creatinine 0.55, calcium 8.8, magnesium 2.3. Ammonia 20. CPK down from 888 to 584 this morning. Troponin down from 0.2 to 0.19. Albumin 3.1. IMAGING: On admission, head CT shows no acute intracranial abnormality. Left shoulder x-ray revealed distal clavicular fracture with elevation of the clavicular shaft, with the distal end of the clavicle still aligned with the acromion. Bilateral carotid ultrasound revealed bilateral luminal narrowing, internal carotids less than 50%. There is no significant stenosis. IMPRESSION AND PLAN: 1. Syncope and collapse. Patient has not had any events while he has been hospitalized thus far. No events on telemetry. His cardiac markers are mildly elevated with troponins of 0.21; however, are trending down to 0.19 this morning. Patient does not endorse any chest pain. Carotid ultrasound does not reveal any significant stenosis and CT initially on admission was essentially negative for acute changes. He overall is frail-appearing and his ammonia level is also normal as well as his thyroid. His deconditioning and malnutrition may be contributing factors to his collapse. An echocardiogram has been ordered, which we are currently still awaiting. Urinalysis (UA) is also ordered for a possible urinary tract infection (UTI) causing his symptoms. Continue encouraging oral intake. Physical therapy (PT) is consulted to assist with his functional mobilization. Will also reach out to social work faculty member to see how we can further assist him and his family. 2. Mildly elevated troponin, 0.21; however, stable with 0.19 this morning. Patient does not have any cardiac complaints. He does also have borderline rhabdomyolysis with CPK near 900, which is also trending downwards to 500 this morning. I do not suspect that he has any direct myocardial damage or myocardial strain. Suspicion is higher for these abnormal labs to be musculoskeletal in nature. Will continue monitoring. 3. Hypokalemia. Supplemented. Will reassess. 4. Left distal clavicular fracture. Patient was assessed by orthopedic surgeon. Appreciate input. Currently, there is no surgical intervention and per their recommendations, left shoulder should be in a sling and he will follow up outpatient. 5. Deconditioning and malnutrition. Patient and Family Services (PFS) has been consulted for possible placement. Patient has bitemporal muscle wasting and has a body mass index (BMI) of 14.3 and low albumin at 3.1. Will supplement with Ensure drinks and encourage oral intake. He is overall very frail-appearing. Will also place him on fall precautions, given his recent fall. 6. Mechanical aortic valve replacement times two. Patient is chronically on Coumadin, which is on hold, given his supratherapeutic INR, which is at 4.3 today. Will recheck INR tomorrow. 7. Hyperlipidemia. Continue home aspirin and statin. 8. Gastroesophageal reflux disease (GERD). Continue ranitidine. 9. Hypertension. Controlled, continue amlodipine. 10. Benign prostatic hypertrophy (BPH). Continue Tamsulosin. Deep venous thrombosis (DVT) prophylaxis. Thromboembolitic deterrents (TEDs) and sequentials, as we are holding Coumadin for supratherapeutic INR. DISPOSITION: Continue monitoring on telemetry. Awaiting physical therapy (PT)/occupational therapy (OT), Patient and Family Services (PFS). Attending Note: I have personally seen and examined the patient this am. I agree with the finding and the plan of care as documented above in the resident's note. ALEK
[2018-09-15 22:00] VITALS: BP 124/57
[2018-09-16] VITALS (12 sets, daily range): BP systolic 97–153; BP diastolic 54–88
[2018-09-16] MEDS: METOPROLOL TART 25 MG TABLET PO SCH ×4 (00:05→18:02)
[2018-09-16] MEDS: KETOROLAC 30 MG/ML VIAL (J1885) IV PRN ×2 (01:27→14:14)
[2018-09-16 06:55] LABS: INR 2.97; PROTHROMBIN TIME 30.8 SECONDS (11.8-14.0)
[2018-09-16 06:59] LABS: BLOOD UREA NITROGEN 22 MG/DL (7-18); CALCIUM LEVEL 8.7 MG/DL (8.8-10.2); CARBON DIOXIDE LEVEL 28 MEQ/L (21-32); CHLORIDE LEVEL 107 MEQ/L (98-107); CREATININE FOR GFR 0.72 MG/DL (0.70-1.30); GLOMERULAR FILTRATION RATE > 60.0 (>35); GLUCOSE, FASTING 94 MG/DL (70-100); POTASSIUM SERUM 3.6 MEQ/L (3.5-5.1); SODIUM LEVEL 140 MEQ/L (136-145)
[2018-09-16 07:31] LABS: HEMATOCRIT 38.4 % (42.0-52.0); MEAN CORPUSCULAR HGB CONC 31.5 g/dl (32.0-36.5); MEAN CORPUSCULAR VOLUME 98.5 fl (80.0-96.0); PLATELET COUNT, AUTOMATED 151 10^3/uL (150-450); WHITE BLOOD COUNT 8.1 10^3/uL (4.0-10.0)
[2018-09-16 07:32] LABS: HEMOGLOBIN 12.1 g/dl (13.5-17.5)
[2018-09-16] MEDS ORDERED: HALOPERIDOL 0.5 MG TAB PO SCH (09:00)
[2018-09-16] MEDS: VITAMIN D 1,000 INTERNATIONAL UNITS TABLET PO SCH (09:12)
[2018-09-16] MEDS: FOLIC ACID 1 MG TAB PO SCH (09:12)
[2018-09-16] MEDS: MULTIVITAMINS/MINERALS THERAP 1 TAB PO SCH (09:12)
[2018-09-16] MEDS: FAMOTIDINE 20 MG TAB PO SCH ×2 (09:12→22:35)
[2018-09-16] MEDS: TAMSULOSIN 0.4 MG CAP PO SCH (09:13)
[2018-09-16] MEDS ORDERED: LORazepam 2 MG/ML VIAL (J2060) IV STA (14:37)
--- NOTE | 2018-09-16 16:49 | IPN ---
DATE: 09/16/2018 SUBJECTIVE: Patient examined at bedside with sitter and niece in the room. He is noted to be agitated at times, trying to pull out his IV and moving his left arm that had the fractured clavicle and trying to pull it out of the sling; otherwise he is doing well without any issues. OBJECTIVE: Physical Exam: Vital Signs: Temperature 97.5, pulse 70, respirations 18, blood pressure 122/59, mean arterial pressure (MAP) of 80, pulse oximetry 94% on 2 liters chronic nasal cannula. General: Resting comfortably in his chair, in no acute distress, is pleasantly confused and answers to simple questions, only oriented to his name, not to year or location. Overall, he is an emaciated, frail appearing elderly male, hunched over in chair. HEENT: Normocephalic, atraumatic. Bitemporal wasting. Dry mucous membranes. Neck: Supple. Cardiovascular: Irregular rhythm and rate is controlled, in atrial fibrillation on telemetry. An ejection click is present that coincides with his history of aortic valve replacement. Lungs: Clear throughout without adventitious sounds. No wheezing, rhonchi, or rales. Skin: Significant ecchymosis expanding in his left shoulder, left flank and part of the left upper arm where he recently fell and has a clavicular fracture. No tenderness on palpation to the area. Abdomen: Concave. Normoactive bowel sounds. Soft, nontender. Musculoskeletal: Decreased range of motion of the left shoulder compared to the right from his recent fall. He is able to ambulate out of his chair. Strength intact bilateral lower extremities. Extremities: No peripheral edema or calf tenderness. LABORATORY: WBC 8.1, hemoglobin and hematocrit 12.1 and 38.4, platelets 151. Sodium and potassium 140 and 3.6. BUN and creatinine 22 and 0.72. IMAGING: No new imaging. IMPRESSION AND PLAN: 1. Syncope and collapse. Probably a combination of cardiac , intravascular volume depletion and physical deconditioning. A fib/ aflutter with intermittent episodes of RVR on telemetry. No significant stenosis on carotid ultrasound. Head CT is negative. Echo from this admission reveals an ejection fraction (EF) of 30-35% with underling coronary artery disease signs, mechanical prosthetic aortic valve with normal functioning, moderate mitral regurgitation and tricuspid regurgitation with moderate pulmonary hypertension and mild pulmonic regurgitation. It is possible that his underlying valvular issues may have led to his collapse versus decreased oral intake versus deconditioning. Continue working with physical therapy (PT) and occupational therapy (OT). Given that he lives alone at home, patient and family services (PFS) has been consulted to assist with placement as well. 2. Mild hypertroponinemia that is stable around 0.2. Patient does not have any cardiac complaints. He does have baseline atrial fibrillation versus atrial flutter with an elevated heart rate on admission, which may have led to this. Additionally, musculoskeletal injury from recent fall may be contributing as well. 3. Sundowning and agitation in the setting of Advanced dementia. The patient is requiring a bedside sitter as well as tranquilizers as he has attempted to get out of bed on his own, but he is a high fall risk. He is attempting to pull out his IVs. Will start on small dose Haldol and monitor. 4. Left distal clavicular fracture. Per orthopedics, continue in a sling and followup outpatient. No surgical intervention. Currently working with PT and OT. 5. Supratherapeutic international normalized ratio (INR) on admission. He is chronically on Coumadin for his history of mechanical aortic valve replacement. Goal INR is 2.5 to 3.5 INR was 4.58 on admission and has fallen to therapeutic levels with withholding Coumadin. Will resume Coumadin, monitor. 6. Mechanical aortic valve replacement times two. Chronically on Coumadin, which will resume. 7. Hyperlipidemia. Continue home aspirin and statin. 8. Gastroesophageal reflux disease (GERD). Continue ranitidine. 9. Hypertension, controlled. Continue amlodipine. 10. BPH with acute urinary retention: Difficult Joe placement required a coude. Continue tamsulosin. 11. CAD with Ischemic cardiomyopathy as seen in the echo which shows regional wall motion abnormalities with acute on chronic systolic CHF requiring IV Lasix. EF of 30% to 35%. 12. Deep vein thrombosis (DVT) prophylaxis. Thromboembolism deterrents (TEDs), sequentials and Coumadin. 13. Severe protein Calorie malnutrition due to dementia and advanced age. BMI of 1.47, has bitemporal wasting and generalized wasting. Sever hypoalbuminemia is causing anasarca. 14. 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 Dilated in 2016 will continue to monitor 15. Hypoxia due to Systolic CHF exacerbation features of CHF on chest xray though this could be after fluid resuscitation Advance Directives DNR. DISPOSITION: Continue monitoring on telemetry. PT, OT and PFS, will likely require placement after hospitalization. Attending note: Patient seen and examined by me. I agree with the residents assessment and plan as documented in the note above. ALEK
[2018-09-16] MEDS ORDERED: WARFARIN SOD 3 MG TAB PO SCH (17:00)
[2018-09-16] MEDS: WARFARIN SOD 2 MG TAB PO SCH (18:04)
[2018-09-16] MEDS: PRAVASTATIN 20 MG TAB PO SCH (22:35)
[2018-09-16] MEDS: HALOPERIDOL 0.5 MG TAB PO SCH (22:35)
[2018-09-16] MEDS: ASPIRIN 81 MG ENTERIC TAB PO SCH (22:46)
[2018-09-17] MEDS: METOPROLOL TART 25 MG TABLET PO SCH ×5 (00:59→23:15)
[2018-09-17 06:00] VITALS: BP 140/62
[2018-09-17 06:24] LABS: HEMATOCRIT 36.2 % (42.0-52.0); HEMOGLOBIN 11.9 g/dl (13.5-17.5); MEAN CORPUSCULAR HEMOGLOBIN 32.2 pg (27.0-33.0); MEAN CORPUSCULAR HGB CONC 32.9 g/dl (32.0-36.5); MEAN CORPUSCULAR VOLUME 98.1 fl (80.0-96.0); PLATELET COUNT, AUTOMATED 164 10^3/uL (150-450); RED BLOOD COUNT 3.69 10^6/uL (4.30-6.10); WHITE BLOOD COUNT 5.4 10^3/uL (4.0-10.0)
[2018-09-17 06:41] LABS: BLOOD UREA NITROGEN 21 MG/DL (7-18); CALCIUM LEVEL 8.7 MG/DL (8.8-10.2); CARBON DIOXIDE LEVEL 32 MEQ/L (21-32); CHLORIDE LEVEL 108 MEQ/L (98-107); CREATININE FOR GFR 0.58 MG/DL (0.70-1.30); GLOMERULAR FILTRATION RATE > 60.0 (>35); GLUCOSE, FASTING 76 MG/DL (70-100); POTASSIUM SERUM 3.6 MEQ/L (3.5-5.1); SODIUM LEVEL 143 MEQ/L (136-145)
[2018-09-17 06:53] LABS: INR 3.08; PROTHROMBIN TIME 31.7 SECONDS (11.8-14.0)
[2018-09-17] MEDS: TAMSULOSIN 0.4 MG CAP PO SCH (09:58)
[2018-09-17] MEDS: FOLIC ACID 1 MG TAB PO SCH (09:58)
[2018-09-17] MEDS: FAMOTIDINE 20 MG TAB PO SCH ×2 (09:58→20:20)
[2018-09-17] MEDS: VITAMIN D 1,000 INTERNATIONAL UNITS TABLET PO SCH (09:58)
[2018-09-17] MEDS: MULTIVITAMINS/MINERALS THERAP 1 TAB PO SCH (09:58)
[2018-09-17 10:00] VITALS: BP 149/75
[2018-09-17] MEDS: HALOPERIDOL 0.5 MG TAB PO SCH ×2 (10:24→20:21)
[2018-09-17 14:00] VITALS: BP 128/56
[2018-09-17] MEDS: ASPIRIN 81 MG CHEW TABLET PO SCH (14:22)
[2018-09-17] MEDS: WARFARIN SOD 2 MG TAB PO SCH (16:38)
[2018-09-17 18:00] VITALS: BP 142/74
--- NOTE | 2018-09-17 18:39 | IPN ---
DATE: 09/17/2018 SUBJECTIVE: The patient seen and examined at bedside with sitter and niece in the room. No reported events overnight. He seems to be doing better psychologically after he was started on Haldol standing dose yesterday, which he is tolerating well. He is calm and pleasant today and resting comfortably. OBJECTIVE: PHYSICAL EXAMINATION: VITAL SIGNS: Temperature 97.6, pulse 64, respirations 16, blood pressure (BP) 140/62, mean arterial pressure (MAP) of 88, pulse oximetry 97% on 2 liters chronic nasal cannula. GENERAL: Resting comfortably in his chair in no acute distress, pleasantly conversant. Only alert and oriented to his name, not to location or year. Is able to answer simple questions. HEENT: Temporal wasting. Dry mucous membranes. CARDIOVASCULAR: Irregular rhythm. Rate is controlled, He is in atrial fibrillation at baseline. Ejection click present. LUNGS: Clear throughout without wheezing, rhonchi, or rales. SKIN: Ecchymosis on his left shoulder and flank is improving from prior days with less swelling. ABDOMEN: Concave. Patient is emaciated and frail. Normoactive bowel sounds. MUSCULOSKELETAL: Range of motion is mildly improved in left shoulder compared to prior days. Strength is also improving. EXTREMITIES: No peripheral edema or calf tenderness. LABORATORY DATA: WBC 5.4, hemoglobin and hematocrit 11.9 and 36.2, platelets 164. Sodium and potassium 143 and 3.6. BUN and creatinine 21 and 0.58. INR 3.08. No new imaging. ASSESSMENT AND PLAN: 1. Syncope and collapse, likely multifactorial secondary to dehydration, volume depletion, physical deconditioning, and possibly cardiac given his ejection fraction (EF) of 30-35% with mechanical prosthetic aortic valve and moderate mitral regurgitation and tricuspid regurgitation with moderate pulmonary hypertension and mild pulmonic regurgitation on most recent echo on this admission. He does have chronic atrial fibrillation and atrial flutter with intermittent episodes of rapid ventricular response (RVR) as well; however, no cardiac complaints since his admission. No significant stenosis. Carotid ultrasound and head CT negative. Work with physical therapy (PT)/occupational therapy (OT) and patient, and family services (PFS) to assist with long-term placement versus rehabilitation given he has fall risk and lives alone at home. Unable to care for himself. 2. Decreased oral intake, likely secondary to his advanced dementia. Unable to care for self. Will monitor caloric intake and consider starting supplemental fluids. Should he continue to decline, will consider speaking with family about code status and possible feeding tube. 3. Sundowning with agitation in setting of advanced dementia. Will continue to have a sitter in place. He is improved since starting on standing dose of Haldol. Continue monitoring. 4. Left distal clavicular fracture. Continue supportive care with a sling per orthopedic recommendations and also outpatient clinic in the clinic, working with PT and OT. No plans for surgical intervention. 5. Supratherapeutic INR on admission was at 4.58. He is chronically on Coumadin given his mechanical aortic valve replacement times two with goal INR being 2.5-3.5. He is currently therapeutic, and we have restarted him on lower dose than what he was on prior to admission from 2.5 mg at home, now on 2 mg. Continue daily monitoring. 6. Mild hypertroponinemia on admission. Patient had no cardiac complaints. This may have been secondary to his episodes of atrial fibrillation/atrial flutter with RVR and his additional musculoskeletal injury on admission. No other events on telemetry. 7. Mechanical aortic valve replaced times two, chronically on Coumadin. 8. Hyperlipidemia. Continue aspirin and statin. 9. Gastroesophageal reflux disease (GERD). Continue ranitidine. 10. Hypertension, controlled on Lopressor. 11. BPH with acute urinary retention during this stay. He has had a Joe inserted for comfort. Difficult Joe placement. Required a Coude. Continue Flomax. 12. Coronary artery disease (CAD) with ischemic cardiomyopathy with echo revealing regional wall motion abnormalities with chronic systolic congestive heart failure (CHF) with ejection fraction (EF) 30-35%, on aspirin, statin, beta juan david. 13. Severe protein calorie malnutrition. Body mass index (BMI) at 14 with decreased oral intake., bitemporal wasting, and overall frail appearing. Also has low albumin at 3.1. Baseline dementia and elderly age likely contributing. Will need placement. 14. 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 Has no complaints currently. CODE STATUS: DO NOT RESUSCITATE, DO NOT INTUBATE. DISPOSITION: PFS is assisting with placement. PT and OT recommend rehabilitation. Currently looking into options with family requesting specifically [facility], and we will monitor on telemetry. My faculty preceptor for this patient encounter was physically present during the encounter and was fully available. All aspects of the patient interview, examination, medical decision making process, and medical care plan development were reviewed and approved by the faculty preceptor. The faculty preceptor is aware and concurs with the plan as stated in the body of this note and will attest to such by his/her co-signature. ATTENDING NOTE: I saw and examined the patient. I agree with the finding and the plan of care as documented in the resident's note. ALEK
[2018-09-17] MEDS: PRAVASTATIN 20 MG TAB PO SCH (20:21)
[2018-09-17 22:00] VITALS: BP 129/66
[2018-09-18 02:00] VITALS: BP 126/77
[2018-09-18 06:00] VITALS: BP 146/72
[2018-09-18] MEDS: METOPROLOL TART 25 MG TABLET PO SCH ×4 (06:03→23:44)
[2018-09-18 06:10] LABS: HEMATOCRIT 41.1 % (42.0-52.0); HEMOGLOBIN 13.4 g/dl (13.5-17.5); MEAN CORPUSCULAR HEMOGLOBIN 31.7 pg (27.0-33.0); MEAN CORPUSCULAR HGB CONC 32.6 g/dl (32.0-36.5); MEAN CORPUSCULAR VOLUME 97.2 fl (80.0-96.0); PLATELET COUNT, AUTOMATED 179 10^3/uL (150-450); RED BLOOD COUNT 4.23 10^6/uL (4.30-6.10); WHITE BLOOD COUNT 5.6 10^3/uL (4.0-10.0)
[2018-09-18 06:27] LABS: INR 2.83; PROTHROMBIN TIME 29.6 SECONDS (11.8-14.0)
[2018-09-18 06:33] LABS: BLOOD UREA NITROGEN 17 MG/DL (7-18); CALCIUM LEVEL 9.1 MG/DL (8.8-10.2); CARBON DIOXIDE LEVEL 33 MEQ/L (21-32); CHLORIDE LEVEL 107 MEQ/L (98-107); CREATININE FOR GFR 0.62 MG/DL (0.70-1.30); GLOMERULAR FILTRATION RATE > 60.0 (>35); GLUCOSE, FASTING 84 MG/DL (70-100); POTASSIUM SERUM 4.9 MEQ/L (3.5-5.1); SODIUM LEVEL 141 MEQ/L (136-145)
[2018-09-18] MEDS: FOLIC ACID 1 MG TAB PO SCH (09:07)
[2018-09-18] MEDS: FAMOTIDINE 20 MG TAB PO SCH ×2 (09:07→20:52)
[2018-09-18] MEDS: HALOPERIDOL 0.5 MG TAB PO SCH ×2 (09:07→20:52)
[2018-09-18] MEDS: ASPIRIN 81 MG CHEW TABLET PO SCH (09:07)
[2018-09-18] MEDS: MULTIVITAMINS/MINERALS THERAP 1 TAB PO SCH (09:07)
[2018-09-18] MEDS: TAMSULOSIN 0.4 MG CAP PO SCH (09:07)
[2018-09-18] MEDS: VITAMIN D 1,000 INTERNATIONAL UNITS TABLET PO SCH (09:08)
[2018-09-18 10:00] VITALS: BP 142/66
[2018-09-18] MEDS ORDERED: LORazepam 2 MG/ML VIAL (J2060) As Ordered ONE (14:27)
[2018-09-18] MEDS ORDERED: LORazepam 2 MG/ML VIAL (J2060) IV PRN (15:00)
[2018-09-18 15:12] VITALS: BP 88/51
[2018-09-18] MEDS: WARFARIN SOD 2 MG TAB PO SCH (16:58)
[2018-09-18 16:59] VITALS: BP 120/61
--- NOTE | 2018-09-18 19:05 | IPN ---
DATE: 09/18/2018 SUBJECTIVE: Patient examined at bedside with sitter and physical therapy (PT) in the room. He has no new complaints and is pleasantly confused from his baseline dementia, otherwise doing well. Working with PT, occupational therapy (OT), and patient and family services (PFS) for possible placement. No f/c/n/v/abd pain/cp/sob. OBJECTIVE: PHYSICAL EXAMINATION: VITAL SIGNS: Temperature 96.9, pulse 73, respirations 15, blood pressure (BP) 146/72, mean arterial pressure (MAP) of 96, pulse oximetry 95% on chronic 2 liters nasal cannula. GENERAL: Resting comfortably in his chair. No acute distress. Answers simple questions. Pleasantly confused at his baseline. Elderly, frail appearing, emaciated. HEENT: Bitemporal wasting. Dry mucous membranes. CARDIOVASCULAR: Rate is controlled, irregular rhythm at baseline, atrial fibrillation. Ejection click present consistent with his history of aortic valve replacement. LUNGS: Clear throughout without any adventitious sounds. SKIN: Ecchymosis on left shoulder and flank still present, however, improved. ABDOMEN: Concave. Hypoactive bowel sounds. MUSCULOSKELETAL: Left arm is in a sling given his recent clavicular fracture. He is reportedly able to get out of the chair and ambulate. EXTREMITIES: No peripheral edema, calf tenderness. LABORATORY DATA: WBC 5.6, hemoglobin and hematocrit 13.4 and 41.1, platelets 179. Sodium and potassium 141 and 4.9. BUN and creatinine 17 and 0.62. INR 2.83. ASSESSMENT AND PLAN: 1. Syncope and collapse in the setting of dehydration, physical deconditioning, and possible cardiac. He has not had any events on telemetry or any cardiac complaints while he has been hospitalized; however, he does have an ejection fraction (EF) of 30-35% with a mechanical prosthetic valve and baseline chronic atrial fibrillation and atrial flutter with intermittent episodes of rapid ventricular response (RVR). He is improved his functional status working with PT and OT. Continue therapy and possible rehabilitation on discharge. 2. Decreased oral intake, inability to care for herself. Overall severe protein calorie malnutrition with body mass index (BMI) of 14, bitemporal wasting, frail appearing, low albumin, likely worsened by his baseline dementia and elderly age. He will need placement. PFS is assisting with this. Will start a calorie count and monitor his intake, possible feeding tube down the line. 3. Agitation in the setting of advanced dementia. He has tolerated starting low-dose Haldol, doing well, however, later became agitated again later in the evening, requiring as-needed intravenous (IV) Ativan and a sitter to be restarted. Continue adjusting medications. 4. Left distal clavicular fracture. Per orthopedics, no surgery. Keep arm in sling. Work with PT/OT and outpatient followup with orthopedics. 5. History of mechanical aortic valve replacement times two. He is chronically on Coumadin. His supratherapeutic INR has been within normal since resuming it. Currently is 2.83, within the goal of 2.5-3.5. 6. Hyperlipidemia. Continue aspirin and statin. 7. Gastroesophageal reflux disease (GERD). Continue famotidine. 8. Hypertension, controlled on Lopressor. 9. BPH with acute urinary retention during stay with a difficult Joe insertion requiring a Coude. Continue Flomax and monitoring urine output. 10. Coronary artery disease (CAD) with ischemic cardiomyopathy. Most recent echo revealing wall motion abnormalities with chronic systolic congestive heart failure (CHF) with an EF of 30-35%. Continue aspirin, statin, beta juan david. 11. 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 No gastrointestinal (GI) complaints currently. CODE STATUS: DO NOT RESUSCITATE, DO NOT INTUBATE. DISPOSITION: Work with PT, OT, and PFS for placement. Sitter in place given his outbursts and sundowning. I saw and evaluated the patient. I agree with the findings and plan of care as documented in the above note MTDD
[2018-09-18] MEDS: PRAVASTATIN 20 MG TAB PO SCH (20:52)
[2018-09-18 22:00] VITALS: BP 146/73
[2018-09-19] MEDS: METOPROLOL TART 25 MG TABLET PO SCH ×3 (05:04→17:17)
[2018-09-19 06:00] VITALS: BP 120/68
[2018-09-19 06:19] LABS: HEMOGLOBIN 12.5 g/dl (13.5-17.5); MEAN CORPUSCULAR HEMOGLOBIN 30.9 pg (27.0-33.0); MEAN CORPUSCULAR HGB CONC 32.9 g/dl (32.0-36.5); MEAN CORPUSCULAR VOLUME 94.1 fl (80.0-96.0); PLATELET COUNT, AUTOMATED 182 10^3/uL (150-450); RED BLOOD COUNT 4.04 10^6/uL (4.30-6.10); WHITE BLOOD COUNT 5.9 10^3/uL (4.0-10.0)
[2018-09-19 06:29] LABS: INR 2.26; PROTHROMBIN TIME 24.8 SECONDS (11.8-14.0)
[2018-09-19 06:45] LABS: BLOOD UREA NITROGEN 14 MG/DL (7-18); CALCIUM LEVEL 8.6 MG/DL (8.8-10.2); CARBON DIOXIDE LEVEL 30 MEQ/L (21-32); CHLORIDE LEVEL 107 MEQ/L (98-107); CREATININE FOR GFR 0.47 MG/DL (0.70-1.30); GLOMERULAR FILTRATION RATE > 60.0 (>35); GLUCOSE, FASTING 85 MG/DL (70-100); POTASSIUM SERUM 3.5 MEQ/L (3.5-5.1); SODIUM LEVEL 142 MEQ/L (136-145)
[2018-09-19] MEDS: VITAMIN D 1,000 INTERNATIONAL UNITS TABLET PO SCH (08:40)
[2018-09-19] MEDS: HALOPERIDOL 0.5 MG TAB PO SCH ×2 (08:40→20:57)
[2018-09-19] MEDS: ASPIRIN 81 MG CHEW TABLET PO SCH (08:40)
[2018-09-19] MEDS: MULTIVITAMINS/MINERALS THERAP 1 TAB PO SCH (08:40)
[2018-09-19] MEDS: FAMOTIDINE 20 MG TAB PO SCH ×2 (08:40→20:57)
[2018-09-19] MEDS: FOLIC ACID 1 MG TAB PO SCH (08:41)
[2018-09-19] MEDS: TAMSULOSIN 0.4 MG CAP PO SCH (08:41)
[2018-09-19 10:00] VITALS: BP 120/64
[2018-09-19 14:00] VITALS: BP 148/78
[2018-09-19] MEDS ORDERED: WARFARIN SOD 4 MG TAB PO ONE (17:00)
[2018-09-19 18:00] VITALS: BP 142/73
[2018-09-19] MEDS: PRAVASTATIN 20 MG TAB PO SCH (20:57)
--- NOTE | 2018-09-19 21:35 | IPN ---
DATE: 09/19/2018 SUBJECTIVE: The patient is examined at bedside, is unchanged from prior day. He is in a positive mood, still having poor oral intake. Working with physical therapy (PT), occupational therapy (OT). Patient Family Services (PFS) planning placement versus rehabilitation. No fevers, chills, nausea, vomiting, abdominal pain. Bruising of left shoulder continues to improve. PHYSICAL EXAMINATION: VITAL SIGNS: Temperature 97.7, pulse 67, respirations 17, blood pressure (BP) 120/68, mean arterial pressure (MAP) of 85, pulse oximetry 93% on chronic 2 liters nasal canula. GENERAL: Resting comfortably in his chair , pleasantly confused, only oriented to himself. Emaciated, weak appearing, hunched over in chair. Elderly male. HEENT: Normocephalic, atraumatic. Supple neck. Bitemporal wasting. CARDIOVASCULAR: Rate control. Irregular rhythm with fine atrial fibrillation . Ejection click present consistent with aortic valve replacement history. LUNGS: Clear throughout without abnormal sounds. EXTREMITIES: Ecchymosis left shoulder flank still present, but improving. ABDOMEN: Soft, nontender, nondistended. MUSCULOSKELETAL: The patient was noted to ambulate working with physical therapy (PT). Left arm was in a sling from recent fall and clavicular fracture. Extremities: No peripheral edema or calf tenderness. LABORATORY: White blood count (WBC) 5.9, hemoglobin and hematocrit 12.5 and 38, platelets 186. Sodium and potassium 136, 3.5. BUN and creatinine 14 and 0.47. INR 2.26. No new imaging. ASSESSMENT AND PLAN: 1. Syncope and collapse with dehydration, physical deconditioning and possible cardiac etiology given his baseline history of atrial fibrillation and atrial flutter, episodes of rapid ventricular response and his low ejection fraction of 30 to 35% and mechanical aortic valve, has not had any cardiac complaints or events on monitor here. Continue working with physical therapy (PT), occupational therapy and encourage by mouth intake. 2. Poor oral intake with severe protein calorie malnutrition. Body mass index (BMI) is 14. He is unable to care for himself, lives alone at home. Bitemporal wasting, frail appearing, elderly man with baseline dementia and elderly age, unable to care for himself. Patient Family Services (PFS) assisting with appointments, keep tracks of a calorie count and encourage by mouth intake. 3. Agitation with baseline advanced dementia and sundowning, continues to require a sitter and started on low-dose Haldol, monitored. 4. Left distal clavicular fracture, work with physical therapy (PT) and occupational therapy (OT). Left arm in sling. Orthopedic outpatient followup. 5. History of mechanical aortic valve replacement times two, chronically on Coumadin. INR goal 2.5 to 3.5. See below. 6. Subtherapeutic INR. The patient was initially supra-therapeutic on admission, Coumadin held and that dose is being readjusted. His regular home dose of 2.5 mg a day, will assess tomorrow, with a dose of 3 mg today with his INR at 2.26. 7. Hyperlipidemia. Continue atorvastatin. 8. Gastroesophageal reflux disease (GERD). Continue famotidine. 9. Hypertension. Controlled on Lopressor. 10. Benign prostatic hypertrophy (BPH). Continue Flomax. Monitor urine output. 11. Coronary artery disease with ischemic cardiomyopathy with ejection fraction 30 to 35% on most echocardiogram. Continue aspirin, statin and beta juan david. 12. Deep vein thrombosis (DVT) prophylaxis, Coumadin. CODE STATUS: DO NOT RESUSCITATE, DO NOT INTUBATE. DISPOSITION: Work with physical therapy (PT), occupational therapy and Patient Family Services (PFS) for possible placement versus rehabilitation I saw and evaluated the patient. I agree with the findings and plan of care as documented in the above note MTDD
[2018-09-19 22:00] VITALS: BP 152/72
[2018-09-20] MEDS: METOPROLOL TART 25 MG TABLET PO SCH ×5 (00:54→23:08)
[2018-09-20 06:00] VITALS: BP 151/77
[2018-09-20 06:52] LABS: HEMATOCRIT 42.8 % (42.0-52.0); HEMOGLOBIN 13.9 g/dl (13.5-17.5); MEAN CORPUSCULAR HEMOGLOBIN 32.1 pg (27.0-33.0); MEAN CORPUSCULAR HGB CONC 32.5 g/dl (32.0-36.5); MEAN CORPUSCULAR VOLUME 98.8 fl (80.0-96.0); PLATELET COUNT, AUTOMATED 180 10^3/uL (150-450); RED BLOOD COUNT 4.33 10^6/uL (4.30-6.10); WHITE BLOOD COUNT 5.4 10^3/uL (4.0-10.0)
[2018-09-20 07:03] LABS: INR 1.63; PROTHROMBIN TIME 19.1 SECONDS (11.8-14.0)
[2018-09-20 07:20] LABS: BLOOD UREA NITROGEN 13 MG/DL (7-18); CALCIUM LEVEL 8.2 MG/DL (8.8-10.2); CARBON DIOXIDE LEVEL 26 MEQ/L (21-32); CHLORIDE LEVEL 110 MEQ/L (98-107); CREATININE FOR GFR 0.56 MG/DL (0.70-1.30); GLOMERULAR FILTRATION RATE > 60.0 (>35); GLUCOSE, FASTING 82 MG/DL (70-100); POTASSIUM SERUM 4.2 MEQ/L (3.5-5.1); SODIUM LEVEL 142 MEQ/L (136-145)
[2018-09-20] MEDS: ASPIRIN 81 MG CHEW TABLET PO SCH (09:26)
[2018-09-20] MEDS: VITAMIN D 1,000 INTERNATIONAL UNITS TABLET PO SCH (09:26)
[2018-09-20] MEDS: FOLIC ACID 1 MG TAB PO SCH (09:26)
[2018-09-20] MEDS: TAMSULOSIN 0.4 MG CAP PO SCH (09:26)
[2018-09-20] MEDS: FAMOTIDINE 20 MG TAB PO SCH ×2 (09:26→20:58)
[2018-09-20] MEDS: MULTIVITAMINS/MINERALS THERAP 1 TAB PO SCH (09:26)
[2018-09-20] MEDS: HALOPERIDOL 0.5 MG TAB PO SCH ×2 (09:28→20:58)
[2018-09-20 10:00] VITALS: BP 118/54
--- NOTE | 2018-09-20 13:12 | IPNPDOC ---
Text Note Date of Service The patient was seen on 09/20/18. NOTE SUBJECTIVE: Examined at bedside with sitter in the room. He has been behaving well without any outbursts overnight and this morning per staff. No other issues. Working with PT and OT, with the left shoulder mobility improving. Patient was reportedly wandering in his room overnight, ambulating independently. No fevers, chills, nausea, vomiting, abdominal pain. Bruising of left shoulder continues to improve. PHYSICAL EXAMINATION: VITAL SIGNS: Please see below GENERAL: Resting comfortably in his chair , pleasantly confused with baseline dementia. Frail appearing, hunched over, emaciated HEENT: Normocephalic, atraumatic. Supple neck. Bitemporal wasting. CARDIOVASCULAR: Rate controlled. Irregular rhythm with baseline atrial fibrillation. Ejection click consistent with aortic valve replacement history. LUNGS: Clear throughout without adventitious sounds. EXTREMITIES: Ecchymosis left shoulder flank still present, but improving. ABDOMEN: Soft, nontender, nondistended. MUSCULOSKELETAL: Left shoulder range of motion significantly improved from admission, almost equal to right shoulder range of motion. Left arm in sling. Extremities: No peripheral edema or calf tenderness. LABORATORY: Please see below No new imaging. ASSESSMENT AND PLAN: 1. Syncope and collapse with dehydration, physical deconditioning and possible cardiac etiology given his baseline history of atrial fibrillation and atrial flutter, episodes of rapid ventricular response and his low ejection fraction of 30 to 35% and mechanical aortic valve. He has been stable during this hospitalization, without any recurrent syncope or collapse. Continue PT, OT, likely outpatient rehabilitation. 2. Poor oral intake with severe protein calorie malnutrition. BMI 14, overall is frail, bitemporal wasting, cachectic looking. He is unable to care for himself, lives alone at home. Baseline dementia and elderly age. field services director assisting with placement. Keep calorie count and encourage by mouth intake. 3. Agitation with baseline advanced dementia and sundowning, continues to require a sitter. Started on Haldol during this admission, dose increased, monitor. 4. Left distal clavicular fracture. Continue PT & OT. Was assessed by Ortho on admission, surgical intervention. Outpatient follow-up in clinic. Left arm in sling. 5. History of mechanical aortic valve replacement times two, chronically on Coumadin. INR goal 2.5 to 3.5. See below. 6. Subtherapeutic INR. Initially supra-therapeutic on admission, Coumadin held at that point, and dose being readjusted since its resumption. His regular home dose of 2.5 mg a day. Titrate up and recheck level tomorrow. 7. Hyperlipidemia. Continue atorvastatin. 8. Gastroesophageal reflux disease (GERD). Continue famotidine. 9. Hypertension. Controlled on Lopressor. 10. Benign prostatic hypertrophy (BPH). Continue Flomax. Monitor urine output. 11. Coronary artery disease with ischemic cardiomyopathy with ejection fraction 30 to 35% on most echocardiogram. Continue aspirin, statin and beta juan david. DVT prophylaxis: Coumadin. CODE STATUS: DO NOT RESUSCITATE, DO NOT INTUBATE. DISPOSITION: PT, OT, PFS for placement versus rehabilitation. I saw and evaluated the patient. I agree with the findings and plan of care as documented in the above note VS,Naye, I+O VSNaye, I+O Laboratory Tests 09/20/18 06:35 Red Blood Count 4.33, Mean Corpuscular Volume 98.8 H, Mean Corpuscular Hemoglobin 32.1, Mean Corpuscular Hemoglobin Concent 32.5, Red Cell Distribution Width 14.4, Calcium Level 8.2 L Vital Signs Date Time Temp Pulse Resp B/P (MAP) Pulse Ox O2 Delivery O2 Flow Rate FiO2 09/20/18 12:18 95 126/54 09/20/18 10:00 98.2 18 96 09/15/18 20:00 2.0 09/14/18 01:55 Nasal Cannula I&O- Last 24 Hours up to 6 AM 09/20/18 06:00 Intake Total 310 ml Output Total 925 ml Balance -615 ml EDUARDO IBARRA DO Sep 20, 2018 13:12 HARIS VALLEJO MD Sep 21, 2018 17:46
[2018-09-20 14:00] VITALS: BP 125/80
[2018-09-20] MEDS ORDERED: WARFARIN SOD 4 MG TAB PO ONE (17:00)
[2018-09-20 18:00] VITALS: BP 120/74
[2018-09-20] MEDS: PRAVASTATIN 20 MG TAB PO SCH (20:58)
[2018-09-20 22:00] VITALS: BP 143/74
[2018-09-21] MEDS: METOPROLOL TART 25 MG TABLET PO SCH ×3 (05:41→17:52)
[2018-09-21 05:49] LABS: HEMOGLOBIN 13.3 g/dl (13.5-17.5); MEAN CORPUSCULAR HEMOGLOBIN 32.2 pg (27.0-33.0); MEAN CORPUSCULAR HGB CONC 33.3 g/dl (32.0-36.5); MEAN CORPUSCULAR VOLUME 96.9 fl (80.0-96.0); PLATELET COUNT, AUTOMATED 157 10^3/uL (150-450); RED BLOOD COUNT 4.13 10^6/uL (4.30-6.10); WHITE BLOOD COUNT 6.5 10^3/uL (4.0-10.0)
[2018-09-21 06:00] VITALS: BP 128/74
[2018-09-21 06:02] LABS: INR 2.39; PROTHROMBIN TIME 25.9 SECONDS (11.8-14.0)
[2018-09-21 06:13] LABS: BLOOD UREA NITROGEN 14 MG/DL (7-18); CALCIUM LEVEL 8.4 MG/DL (8.8-10.2); CARBON DIOXIDE LEVEL 27 MEQ/L (21-32); CHLORIDE LEVEL 109 MEQ/L (98-107); GLOMERULAR FILTRATION RATE > 60.0 (>35); GLUCOSE, FASTING 87 MG/DL (70-100); POTASSIUM SERUM 3.8 MEQ/L (3.5-5.1); SODIUM LEVEL 142 MEQ/L (136-145)
[2018-09-21 09:00] VITALS: BP 118/64
[2018-09-21] MEDS: ASPIRIN 81 MG CHEW TABLET PO SCH (11:14)
[2018-09-21] MEDS: FOLIC ACID 1 MG TAB PO SCH (11:14)
[2018-09-21] MEDS: VITAMIN D 1,000 INTERNATIONAL UNITS TABLET PO SCH (11:14)
[2018-09-21] MEDS: HALOPERIDOL 0.5 MG TAB PO SCH ×2 (11:14→20:49)
[2018-09-21] MEDS: FAMOTIDINE 20 MG TAB PO SCH ×2 (11:15→20:49)
[2018-09-21] MEDS: MULTIVITAMINS/MINERALS THERAP 1 TAB PO SCH (11:15)
[2018-09-21] MEDS: TAMSULOSIN 0.4 MG CAP PO SCH (11:15)
--- NOTE | 2018-09-21 12:13 | IPNPDOC ---
Text Note Date of Service The patient was seen on 09/21/18. NOTE SUBJECTIVE: Patient examined at bedside with consider in room. Was noted to remain around in the room overnight again. No other events overnight. Is behaving well without any outbursts. No f/c/n/v/abd pain/cp/sob. PHYSICAL EXAMINATION: VITAL SIGNS: Please see below GENERAL: Resting comfortably, NAD, confused at baseline from dementia. Frail appearing, hunched over, emaciated HEENT: Normocephalic, atraumatic. Supple neck. Bitemporal wasting CARDIOVASCULAR: Rate controlled. Irregular rhythm. Has baseline atrial fibrillation. Ejection click from aortic valve replacement history LUNGS: Clear throughout. No adventitious sounds. EXTREMITIES: Ecchymosis left shoulder flank still present, but improving. Normal ROM in other extremities ABDOMEN: Soft, nontender, nondistended. MUSCULOSKELETAL: Left shoulder range of motion significantly improved from admission and out of sling this am will Extremities: No peripheral edema or calf tenderness. LABORATORY: Please see below No new imaging. ASSESSMENT AND PLAN: 1. Syncope and collapse with dehydration, physical deconditioning and possible cardiac etiology. He has not had any persist during this stay. Continue current PT and OT. No events on telemetry. He has a history of baseline atrial fibrillation and atrial flutter, episodes of rapid ventricular response and low EF of 30 to 35% and mechanical aortic valve. Likely outpatient rehabilitation. 2. Poor oral intake with severe protein calorie malnutrition. Continues to have poor po intake. Likely worsened by baseline dementia. BMI 14, overall is frail, bitemporal wasting, cachectic looking. He is unable to care for himself, lives alone at home. supervisor ship maintenance services assisting with placement. Keep calorie count and encourage by mouth intake. 3. Agitation with baseline advanced dementia and . Started on Haldol during this stay. Mentation improved since increasing it to 0.5 bid. Continue sitter and if stays stable, will dc. 4. Left distal clavicular fracture. ROM improving. Continue PT & OT. Per Ortho recommendation on admission, no surgical intervention, keep left arm in sling. Outpatient follow-up in clinic. 5. History of mechanical aortic valve replacement times two, chronically on Coumadin. INR goal 2.5 to 3.5. See below. 6. Subtherapeutic INR. Initially supra-therapeutic on admission, Coumadin held at that point, and dose being readjusted since its resumption. His regular home dose of 2.5 mg a day. Titrate up and recheck level daily. 7. Hyperlipidemia. Continue atorvastatin. 8. Gastroesophageal reflux disease (GERD). Continue famotidine. 9. Hypertension. Controlled on Lopressor. 10. Benign prostatic hypertrophy (BPH). Continue Flomax. Monitor urine output. 11. Coronary artery disease with ischemic cardiomyopathy with ejection fraction 30 to 35% on most echocardiogram. Continue aspirin, statin and beta juan david. DVT prophylaxis: Coumadin. CODE STATUS: DO NOT RESUSCITATE, DO NOT INTUBATE. DISPOSITION: PT, OT, PFS for placement versus subacute rehabilitation. I saw and evaluated the patient. I agree with the findings and plan of care as documented in the above note Naye VAZQUEZ, I+O Naye VAZQUEZ I+O Laboratory Tests 09/21/18 05:41 Red Blood Count 4.13 L, Mean Corpuscular Volume 96.9 H, Mean Corpuscular Hemoglobin 32.2, Mean Corpuscular Hemoglobin Concent 33.3, Red Cell Distribution Width 14.5, Calcium Level 8.4 L Vital Signs Date Time Temp Pulse Resp B/P (MAP) Pulse Ox O2 Delivery O2 Flow Rate FiO2 09/21/18 09:00 97.9 69 20 118/64 (82) 97 09/15/18 20:00 2.0 I&O- Last 24 Hours up to 6 AM 09/21/18 06:00 Intake Total 356 ml Output Total 1070 ml Balance -714 ml EDUARDO IBARRA DO Sep 21, 2018 12:13 HARIS VALLEJO MD Sep 21, 2018 17:57
[2018-09-21 14:00] VITALS: BP 110/60
[2018-09-21] MEDS: WARFARIN SOD 2.5 MG TAB PO SCH (17:50)
[2018-09-21 18:00] VITALS: BP 150/76
[2018-09-21] MEDS: PRAVASTATIN 20 MG TAB PO SCH (20:49)
[2018-09-21 22:00] VITALS: BP 133/75
[2018-09-22] VITALS (7 sets, daily range): BP systolic 108–156; BP diastolic 59–77
[2018-09-22] MEDS: METOPROLOL TART 25 MG TABLET PO SCH ×5 (00:33→23:59)
[2018-09-22 06:42] LABS: INR 2.82; PROTHROMBIN TIME 29.6 SECONDS (11.8-14.0)
[2018-09-22] MEDS: ASPIRIN 81 MG CHEW TABLET PO SCH (09:00)
[2018-09-22] MEDS: TAMSULOSIN 0.4 MG CAP PO SCH (11:03)
[2018-09-22] MEDS: FOLIC ACID 1 MG TAB PO SCH (11:03)
[2018-09-22] MEDS: HALOPERIDOL 0.5 MG TAB PO SCH (11:03)
[2018-09-22] MEDS: MULTIVITAMINS/MINERALS THERAP 1 TAB PO SCH (11:04)
[2018-09-22] MEDS: FAMOTIDINE 20 MG TAB PO SCH ×2 (11:04→21:07)
[2018-09-22] MEDS: VITAMIN D 1,000 INTERNATIONAL UNITS TABLET PO SCH (11:19)
--- NOTE | 2018-09-22 14:34 | IPNPDOC ---
Date Seen The patient was seen on 09/22/18. Progress Note SUBJECTIVE: Patient examined at bedside patient is oriented to person but not place time or situation. No behavioral issues noted overnight. Is behaving well without any outbursts. No f/c/n/v/abd pain/cp/sob. PHYSICAL EXAMINATION: VITAL SIGNS: Please see below GENERAL: Resting comfortably in bed watching television eating breakfast, NAD, confused at baseline from dementia. Frail appearing, hunched over, emaciated HEENT: Normocephalic, atraumatic. Supple neck. Bitemporal wasting CARDIOVASCULAR: Rate controlled. Irregular rhythm. Has baseline atrial fibrillation. Ejection click from aortic valve replacement history LUNGS: Clear throughout. No adventitious sounds. EXTREMITIES: Ecchymosis left shoulder flank still present, but improving. Normal ROM in other extremities ABDOMEN: Soft, nontender, nondistended. MUSCULOSKELETAL: Left shoulder range of motion significantly improved from admission and out of sling this am will Extremities: No peripheral edema or calf tenderness.SUBJECTIVE: Patient examined at bedside with consider in room. Was noted to remain around in the room overnight again. No other events overnight. Is behaving well without any outbursts. No f/c/n/v/abd pain/cp/sob. PHYSICAL EXAMINATION: VITAL SIGNS: Please see below GENERAL: Resting comfortably, NAD, confused at baseline from dementia. Frail appearing, hunched over, emaciated HEENT: Normocephalic, atraumatic. Supple neck. Bitemporal wasting CARDIOVASCULAR: Rate controlled. Irregular rhythm. Has baseline atrial fibrillation. Ejection click from aortic valve replacement history LUNGS: Clear throughout. No adventitious sounds. EXTREMITIES: Ecchymosis left shoulder flank still present, but improving. Normal ROM in other extremities ABDOMEN: Soft, nontender, nondistended. MUSCULOSKELETAL: Left shoulder range of motion significantly improved from admission and out of sling this am will Extremities: No peripheral edema or calf tenderness. Wasted LABORATORY: Please see below No new imaging. ASSESSMENT AND PLAN: 1. Syncope and collapse with dehydration, physical deconditioning. He has not had any further episodes during this stay in the hospital. Continue current PT and OT. He has a history of baseline atrial fibrillation and atrial flutter. He will Likely require longterm placement 2. Poor oral intake with severe protein calorie malnutrition. Continues to have poor po intake. Likely worsened by baseline dementia. BMI 14, overall is frail, bitemporal wasting, cachectic looking. He is unable to care for himself, lives alone at home. administrative services coordinator assisting with longterm placement. Keep calorie count and encourage by mouth intake. 3. Agitation with baseline advanced dementia and sundowning. Started on Haldol during this stay. Mentation improved since increasing it to 0.5 bid. After up ti tration of his Haldol will attempt to discontinue Excedrin see how he does overnight this evening 4. Left distal clavicular fracture. ROM improving. Continue PT & OT. Per Ortho recommendation on admission, no surgical intervention, keep left arm in sling. Outpatient follow-up in clinic. 5. History of mechanical aortic valve replacement times two, chronically on Coumadin. INR goal 2.5 to 3.5. Therapeutic 6. Hyperlipidemia. Continue atorvastatin. 7. Gastroesophageal reflux disease (GERD). Continue famotidine. 8. Hypertension. Controlled on Lopressor. 9. Benign prostatic hypertrophy (BPH). Continue Flomax. 11. Coronary artery disease with ischemic cardiomyopathy with ejection fraction 30 to 35% on most echocardiogram. Continue aspirin, statin and beta juan david. Curiously he is not on an MINDI inhibitor loop diuretic or spironolactone. His lung status appears to be optimized. It is unclear to me the reasons for this will defer to his outpatient branch operations coordinator for follow his prosthetic valves as well 12. Atrial fibrillation/flutter: Rate controlled with Lopressor anticoagulated with Coumadin DVT prophylaxis: Coumadin. CODE STATUS: DO NOT RESUSCITATE, DO NOT INTUBATE. DISPOSITION: longterm placement VS, I&O[facility]/I&O Vital Signs Date Time Temp Pulse Resp B/P (MAP) Pulse Ox O2 Delivery O2 Flow Rate FiO2 09/22/18 10:00 97.9 69 20 108/59 (47) 93 I&O- Last 24 Hours up to 6 AM 09/22/18 06:00 Intake Total 870 ml Output Total 910 ml Balance -40 ml Laboratory Data 24H LABS Laboratory Tests 2 09/22/18 05:18: Prothrombin Time 29.6H, Prothromb Time International Ratio 2.82 HARIS VALLEJO MD Sep 22, 2018 14:34
[2018-09-22] MEDS: WARFARIN SOD 2.5 MG TAB PO SCH (17:31)
[2018-09-22] MEDS: PRAVASTATIN 20 MG TAB PO SCH (21:07)
[2018-09-22] MEDS: risperiDONE 0.5 MG TAB PO SCH (21:07)
--- NOTE | 2018-09-23 00:01 | REPVR ---
EXAM: US Duplex Left Upper Extremity Veins, Limited EXAM DATE/TIME: 09/22/2018 11:10 PM CLINICAL HISTORY: 83 years old, male; Edema, localized; Upper extremity, left; Additional info: Redness and warmth left hand TECHNIQUE: Imaging protocol: Real-time Duplex ultrasound of the Left Upper Extremity with 2-D perez scale, color Doppler flow and spectral waveform analysis with image documentation. Limited exam focused on the left upper extremity veins. COMPARISON: US DUPLEX EXT UPPER VEINS UNILATE 07/28/2015 10:07 AM FINDINGS: Left deep veins: Internal jugular, subclavian, axillary and brachial veins patent without thrombus. Normal compressibility, augmentation response and/or Doppler waveforms. Left superficial veins: Visualized cephalic and basilic veins patent without thrombus. Soft tissues: Unremarkable. IMPRESSION: No sonographic evidence of deep vein thrombosis. Electronically signed by: Timbo Merritt On 09/23/2018 00:01:21 AM
[2018-09-23 02:00] VITALS: BP 154/72
[2018-09-23] MEDS: METOPROLOL TART 25 MG TABLET PO SCH ×3 (05:44→17:05)
[2018-09-23 06:00] VITALS: BP 140/74
--- NOTE | 2018-09-23 07:54 | ECGEPIP ---
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
[2018-09-23 07:59] LABS: HEMOGLOBIN 12.3 g/dl (13.5-17.5); MEAN CORPUSCULAR HEMOGLOBIN 31.9 pg (27.0-33.0); MEAN CORPUSCULAR HGB CONC 32.4 g/dl (32.0-36.5); MEAN CORPUSCULAR VOLUME 98.4 fl (80.0-96.0); PLATELET COUNT, AUTOMATED 173 10^3/uL (150-450); RED BLOOD COUNT 3.86 10^6/uL (4.30-6.10)
[2018-09-23 08:15] LABS: INR 2.62; PROTHROMBIN TIME 27.9 SECONDS (11.8-14.0)
[2018-09-23 08:18] LABS: BLOOD UREA NITROGEN 16 MG/DL (7-18); CALCIUM LEVEL 8.5 MG/DL (8.8-10.2); CARBON DIOXIDE LEVEL 29 MEQ/L (21-32); CHLORIDE LEVEL 108 MEQ/L (98-107); CREATININE FOR GFR 0.69 MG/DL (0.70-1.30); GLOMERULAR FILTRATION RATE > 60.0 (>35); GLUCOSE, FASTING 106 MG/DL (70-100); POTASSIUM SERUM 3.7 MEQ/L (3.5-5.1); SODIUM LEVEL 142 MEQ/L (136-145)
[2018-09-23] MEDS: VITAMIN D 1,000 INTERNATIONAL UNITS TABLET PO SCH (08:48)
[2018-09-23] MEDS: MULTIVITAMINS/MINERALS THERAP 1 TAB PO SCH (08:48)
[2018-09-23] MEDS: risperiDONE 0.5 MG TAB PO SCH ×2 (08:48→21:45)
[2018-09-23] MEDS: ASPIRIN 81 MG CHEW TABLET PO SCH (08:48)
[2018-09-23] MEDS: FOLIC ACID 1 MG TAB PO SCH (08:48)
[2018-09-23] MEDS: FAMOTIDINE 20 MG TAB PO SCH ×2 (08:48→21:45)
[2018-09-23] MEDS: TAMSULOSIN 0.4 MG CAP PO SCH (08:48)
[2018-09-23 10:58] VITALS: BP 116/84
[2018-09-23 14:00] VITALS: BP 140/20
[2018-09-23] MEDS: WARFARIN SOD 2.5 MG TAB PO SCH (17:05)
--- NOTE | 2018-09-23 17:36 | IPNPDOC ---
Date Seen The patient was seen on 09/23/18. Progress Note SUBJECTIVE: Patient is a 83-year-old male seen and examined. Continue to be oriented to person but not place time or situation, at baseline No behavioral issues noted overnight. No fevers, chills, nausea, vomiting, abdominal pain, chest pain, shortness of breath. OBJECTIVE PHYSICAL EXAMINATION: VITAL SIGNS: Please see below. GENERAL: Resting comfortably, NAD, confused at baseline from dementia. Frail appearing, hunched over, emaciated HEENT: Normocephalic, atraumatic. Bitemporal wasting CARDIOVASCULAR: Rate controlled. Irregular rhythm. Has baseline atrial fibrillation. Ejection click from aortic valve replacement history RESPIRATORY: CTA-B ABDOMINAL: Soft, nontender, nondistended. Positive bowel sounds in all 4 quadrants EXTREMITIES:Ecchymosis left shoulder flank still present, but improving. Normal ROM in other extremities. NEUROLOGICAL: confused at baseline from dementia LABORATORY DATA, IMAGING STUDIES, MICROBIOLOGY: Please see below. DVT prophylaxis ordered?: yes ASSESSMENT AND PLAN: This is a 83 year old male admitted for Syncope, collapse with dehydration and physical deconditioning PROBLEMS: Syncope, collapse with dehydration and physical deconditioning -no any further episodes since admission. -c/w PT and OT. -history of baseline atrial fibrillation and atrial flutter -Likely require chcf placement Poor oral intake with severe protein calorie malnutrition -BMI 14 -Continues to have poor po intake -Likely worsened by baseline dementia -unable to care for himself, lives alone at home -real estate services coordinator assisting with chcf placement -Keep calorie count and encourage by mouth intake. Agitation with baseline advanced dementia and . c/w with Haldol 0.5 bid, mentation improved with this dose Left distal clavicular fracture -c/w PT & OT -Per Ortho recommendation on admission, no surgical intervention, keep left arm in sling -Outpatient follow-up in clinic. History of mechanical aortic valve replacement x two chronically on Coumadin. -INR goal 2.5 to 3.5. -Therapeutic Hyperlipidemia -c/w atorvastatin Gastroesophageal reflux disease (GERD). -c/w famotidine Hypertension. -c/w Lopressor Benign prostatic hypertrophy (BPH) -c/w Flomax. 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 - not on an MINDI inhibitor loop diuretic or spironolactone, will defer to his outpatient band booker for follow his prosthetic valves as well Atrial fibrillation/flutter -Rate controlled with Lopressor -anticoagulated with Coumadin DVT ppx: Coumadin I saw and evaluated the patient. I agree with the findings and plan of care as documented in the above note VS, I&O, 24H, Fishbone Vital Signs/I&O Vital Signs Date Time Temp Pulse Resp B/P (MAP) Pulse Ox O2 Delivery O2 Flow Rate FiO2 09/23/18 17:05 75 128/74 09/23/18 14:00 97.9 22 97 09/22/18 08:00 2.0 I&O- Last 24 Hours up to 6 AM 09/23/18 06:00 Intake Total 310 ml Output Total 775 ml Balance -465 ml Laboratory Data 24H LABS Laboratory Tests 2 09/23/18 07:38: Prothrombin Time 27.9H, Prothromb Time International Ratio 2.62 09/23/18 07:40: Nucleated Red Blood Cells % (auto) 0.0, Anion Gap 5L, Glomerular Filtration Rate > 60.0, Blood Urea Nitrogen 16, Creatinine 0.69L, Sodium Level 142, Potassium Level 3.7, Chloride Level 108H, Carbon Dioxide Level 29, Calcium Level 8.5L CBC/BMP Laboratory Tests 09/23/18 07:40 Red Blood Count 3.86 L, Mean Corpuscular Volume 98.4 H, Mean Corpuscular Hemoglobin 31.9, Mean Corpuscular Hemoglobin Concent 32.4, Red Cell Distribution Width 14.8 H, Calcium Level 8.5 L ZHEN STONE DO Sep 23, 2018 17:36 HARIS VALLEJO MD Oct 04, 2018 11:55
[2018-09-23] MEDS: PRAVASTATIN 20 MG TAB PO SCH (21:45)
[2018-09-23 22:00] VITALS: BP 135/65
[2018-09-24] VITALS: BP 137/61
[2018-09-24] MEDS: METOPROLOL TART 25 MG TABLET PO SCH ×5 (00:04→17:03)
[2018-09-24 02:00] VITALS: BP 132/62
[2018-09-24 06:00] VITALS: BP 159/75
[2018-09-24] MEDS: FAMOTIDINE 20 MG TAB PO SCH ×2 (08:06→21:07)
[2018-09-24] MEDS: TAMSULOSIN 0.4 MG CAP PO SCH (08:06)
[2018-09-24] MEDS: risperiDONE 0.5 MG TAB PO SCH ×2 (08:06→21:07)
[2018-09-24] MEDS: FOLIC ACID 1 MG TAB PO SCH (08:06)
[2018-09-24] MEDS: VITAMIN D 1,000 INTERNATIONAL UNITS TABLET PO SCH (08:06)
[2018-09-24] MEDS: ASPIRIN 81 MG CHEW TABLET PO SCH (08:06)
[2018-09-24] MEDS: MULTIVITAMINS/MINERALS THERAP 1 TAB PO SCH (08:06)
[2018-09-24 08:31] LABS: INR 2.13; PROTHROMBIN TIME 23.6 SECONDS (11.8-14.0)
[2018-09-24 10:00] VITALS: BP 130/64
--- NOTE | 2018-09-24 13:38 | IPNPDOC ---
Text Note Date of Service The patient was seen on 09/24/18. NOTE Subjective: Patient is an 83-year-old male with a PMHx of HTN, DLP, BPH, GERD, who presented to the ED with increasing confusion and generalized weakness. Patient was brought to the emergency room for further evaluation by his family. Patient was admitted to hospitalist service for further evaluation/treatment. Patient was seen and examined at the bedside. Currently has no new complaints. Not fully oriented. Objective: Vitals (See below) General: Lying in bed, no acute distress, comfortable, Awake / Alert HEENT: NC, AT CVS: RRR, +S1S2 Lungs: Fair air entry b/l, -w/r/r Abdomen: Soft, ND, NT Extremities: - Edema, - Calf tenderness Assessment and plan: Syncope, collapse with dehydration and physical deconditioning - No further episodes since admission - c/w PT and OT - [facility] need [place] [facility] on discharge Agitation with baseline advanced dementia and sundowning - s/p Haldol - c/w Risperidone Poor oral intake with severe protein calorie malnutrition - BMI 14 with poor oral intake; worsened by baseline dementia - Unable to care for himself, lives alone at home - Will need [place] [facility] Left distal clavicular fracture - c/w PT & OT - Per Ortho recommendation on admission, no surgical intervention, keep left arm in sling - Outpatient follow-up in clinic. 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 - INR goal 2.5 to 3.5 - Will continue to monitor; slightly sub-therapeutic today Atrial fibrillation/flutter - c/w rate control with metoprolol tartrate - c/w full anticoagulation with Coumadin Hyperlipidemia - c/w pravastatin Benign prostatic hypertrophy - c/w Tamsulosin GERD - c/w Famotidine DVT prophylaxis - c/w full anticoagulation with Coumadin VS,Fishbone, I+O VS, Fishbone, I+O Vital Signs Date Time Temp Pulse Resp B/P (MAP) Pulse Ox O2 Delivery O2 Flow Rate FiO2 09/24/18 10:00 97.0 68 19 130/64 (86) 95 09/22/18 08:00 2.0 I&O- Last 24 Hours up to 6 AM 09/24/18 06:00 Intake Total 515 ml Output Total 950 ml Balance -435 ml THEA NAVA MD Sep 24, 2018 13:38
[2018-09-24 14:00] VITALS: BP 138/70
[2018-09-24] MEDS: WARFARIN SOD 2.5 MG TAB PO SCH (17:03)
[2018-09-24] MEDS: PRAVASTATIN 20 MG TAB PO SCH (21:07)
[2018-09-24 22:00] VITALS: BP 144/79
[2018-09-25] MEDS: METOPROLOL TART 25 MG TABLET PO SCH ×4 (00:12→17:32)
[2018-09-25 02:00] VITALS: BP 142/65
[2018-09-25 06:21] LABS: BASO % 0.4 % (0.0-1.0); HEMOGLOBIN 11.7 g/dl (13.5-17.5); LYMPH # 1.9 10^3/uL (1.5-4.5); LYMPH % 26.4 % (24.0-44.0); MEAN CORPUSCULAR HEMOGLOBIN 32.1 pg (27.0-33.0); MEAN CORPUSCULAR HGB CONC 32.5 g/dl (32.0-36.5); MEAN CORPUSCULAR VOLUME 98.9 fl (80.0-96.0); MONO # 0.7 10^3/uL (0.0-0.8); MONO % 9.8 % (0.0-5.0); NEUTROPHILS # 4.5 10^3/uL (1.8-7.7); NEUTROPHILS % 62.8 % (36.0-66.0); PLATELET COUNT, AUTOMATED 165 10^3/uL (150-450); RED BLOOD COUNT 3.64 10^6/uL (4.30-6.10); WHITE BLOOD COUNT 7.1 10^3/uL (4.0-10.0)
[2018-09-25 06:43] LABS: BLOOD UREA NITROGEN 14 MG/DL (7-18); CALCIUM LEVEL 8.6 MG/DL (8.8-10.2); CARBON DIOXIDE LEVEL 28 MEQ/L (21-32); CHLORIDE LEVEL 108 MEQ/L (98-107); CREATININE FOR GFR 0.55 MG/DL (0.70-1.30); GLOMERULAR FILTRATION RATE > 60.0 (>35); GLUCOSE, FASTING 78 MG/DL (70-100); MAGNESIUM LEVEL 2.4 MG/DL (1.8-2.4); POTASSIUM SERUM 3.9 MEQ/L (3.5-5.1); SODIUM LEVEL 141 MEQ/L (136-145)
[2018-09-25 06:55] VITALS: BP 140/67
[2018-09-25] MEDS: ASPIRIN 81 MG CHEW TABLET PO SCH (08:44)
[2018-09-25] MEDS: FOLIC ACID 1 MG TAB PO SCH (08:44)
[2018-09-25] MEDS: FAMOTIDINE 20 MG TAB PO SCH ×2 (08:44→20:43)
[2018-09-25] MEDS: risperiDONE 0.5 MG TAB PO SCH ×2 (08:44→20:43)
[2018-09-25] MEDS: TAMSULOSIN 0.4 MG CAP PO SCH (08:44)
[2018-09-25] MEDS: MULTIVITAMINS/MINERALS THERAP 1 TAB PO SCH (08:44)
[2018-09-25] MEDS: VITAMIN D 1,000 INTERNATIONAL UNITS TABLET PO SCH (08:44)
[2018-09-25 10:00] VITALS: BP 109/73
[2018-09-25 14:00] VITALS: BP 131/69
--- NOTE | 2018-09-25 14:42 | IPNPDOC ---
Text Note Date of Service The patient was seen on 09/25/18. NOTE Subjective: Patient is an 83-year-old male with a PMHx of HTN, DLP, BPH, GERD, who presented to the ED with increasing confusion and generalized weakness. Patient was brought to the emergency room for further evaluation by his family. Patient was admitted to hospitalist service for further evaluation/treatment. Patient was seen and examined at the bedside. Family. He is seen sitting up in a chair eating breakfast. Currently, patient is still very confused. Objective: Vitals (See below) General: Lying in bed, no acute distress, comfortable, Awake / Alert HEENT: NC, AT CVS: +S1S2 Lungs: Fair air entry b/l, -auscultations without wheezing, rhonchi. Rales Abdomen: Soft, nondistended and nontender Extremities: No evidence of edema, - Calf tenderness Assessment and plan: Syncope, collapse with dehydration and physical deconditioning - No further episodes since admission - c/w PT and OT - Will need chcf facility on discharge; looking into placement options Agitation with baseline advanced dementia and sundowning - s/p Haldol - c/w Risperidone Urinary retention - Patient had a trial of Joe catheter removal; over despite removal patient has continued to experience urinary retention - Will have Joe catheter reintroduced Poor oral intake with severe protein calorie malnutrition - BMI 14 with poor oral intake; worsened by baseline dementia - Unable to care for himself, lives alone at home - Will need [facility] facility Left distal clavicular fracture - c/w PT & OT - Per Ortho recommendation on admission, no surgical intervention, keep left arm in sling - Outpatient follow-up in clinic. 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 - INR goal 2.5 to 3.5 - Will continue with Coumadin Atrial fibrillation/flutter - c/w rate control with metoprolol tartrate - c/w full anticoagulation with Coumadin Hyperlipidemia - c/w pravastatin Benign prostatic hypertrophy - c/w Tamsulosin GERD - c/w Famotidine DVT prophylaxis - c/w full anticoagulation with Coumadin Disposition: - Looking into placement options - Will transition patient to [facility] VS,Fishbone, I+O VS, Fishbone, I+O Laboratory Tests 09/25/18 05:53 Red Blood Count 3.64 L, Mean Corpuscular Volume 98.9 H, Mean Corpuscular Hemoglobin 32.1, Mean Corpuscular Hemoglobin Concent 32.5, Red Cell Distribution Width 14.6 H, Neutrophils (%) (Auto) 62.8, Lymphocytes (%) (Auto) 26.4, Monocytes (%) (Auto) 9.8 H, Eosinophils (%) (Auto) 0.0, Basophils (%) (Auto) 0.4, Neutrophils # (Auto) 4.5, Lymphocytes # (Auto) 1.9, Monocytes # (Auto) 0.7, Eosinophils # (Auto) 0.0, Basophils # (Auto) 0.0, Calcium Level 8.6 L Vital Signs Date Time Temp Pulse Resp B/P (MAP) Pulse Ox O2 Delivery O2 Flow Rate FiO2 09/25/18 14:00 97.6 70 17 131/69 (89) 94 09/22/18 08:00 2.0 I&O- Last 24 Hours up to 6 AM 09/25/18 06:00 Intake Total 790 ml Output Total 350 ml Balance 440 ml THEA NAVA MD Sep 25, 2018 14:42
[2018-09-25] MEDS: WARFARIN SOD 2.5 MG TAB PO SCH (17:32)
[2018-09-25] MEDS: PRAVASTATIN 20 MG TAB PO SCH (20:42)
[2018-09-26] MEDS: METOPROLOL TART 25 MG TABLET PO SCH ×4 (01:23→17:40)
[2018-09-26 05:39] LABS: BASO % 0.8 % (0.0-1.0); EOS % 0.2 % (0.0-3.0); HEMATOCRIT 37.9 % (42.0-52.0); HEMOGLOBIN 12.4 g/dl (13.5-17.5); LYMPH # 0.8 10^3/uL (1.5-4.5); LYMPH % 15.9 % (24.0-44.0); MEAN CORPUSCULAR HEMOGLOBIN 31.2 pg (27.0-33.0); MEAN CORPUSCULAR HGB CONC 32.7 g/dl (32.0-36.5); MEAN CORPUSCULAR VOLUME 95.2 fl (80.0-96.0); MONO # 0.4 10^3/uL (0.0-0.8); MONO % 7.9 % (0.0-5.0); NEUTROPHILS # 3.8 10^3/uL (1.8-7.7); NEUTROPHILS % 74.8 % (36.0-66.0); PLATELET COUNT, AUTOMATED 170 10^3/uL (150-450); RED BLOOD COUNT 3.98 10^6/uL (4.30-6.10)
[2018-09-26 05:49] LABS: INR 2.52
[2018-09-26 05:59] LABS: BLOOD UREA NITROGEN 12 MG/DL (7-18); CALCIUM LEVEL 8.6 MG/DL (8.8-10.2); CARBON DIOXIDE LEVEL 27 MEQ/L (21-32); CHLORIDE LEVEL 108 MEQ/L (98-107); CREATININE FOR GFR 0.58 MG/DL (0.70-1.30); GLOMERULAR FILTRATION RATE > 60.0 (>35); GLUCOSE, FASTING 82 MG/DL (70-100); MAGNESIUM LEVEL 2.4 MG/DL (1.8-2.4); POTASSIUM SERUM 3.7 MEQ/L (3.5-5.1); SODIUM LEVEL 141 MEQ/L (136-145)
[2018-09-26 06:00] VITALS: BP 166/80
[2018-09-26] MEDS: risperiDONE 0.5 MG TAB PO SCH ×2 (09:09→22:37)
[2018-09-26] MEDS: ASPIRIN 81 MG CHEW TABLET PO SCH (09:09)
[2018-09-26] MEDS: TAMSULOSIN 0.4 MG CAP PO SCH (09:09)
[2018-09-26] MEDS: VITAMIN D 1,000 INTERNATIONAL UNITS TABLET PO SCH (09:09)
[2018-09-26] MEDS: FAMOTIDINE 20 MG TAB PO SCH ×2 (09:09→22:38)
[2018-09-26] MEDS: FOLIC ACID 1 MG TAB PO SCH (09:09)
[2018-09-26] MEDS: MULTIVITAMINS/MINERALS THERAP 1 TAB PO SCH (09:09)
[2018-09-26] MEDS: WARFARIN SOD 2.5 MG TAB PO SCH (17:39)
[2018-09-26] MEDS: PRAVASTATIN 20 MG TAB PO SCH (22:37)
[2018-09-27 00:56] VITALS: BP 142/71
[2018-09-27] MEDS: METOPROLOL TART 25 MG TABLET PO SCH ×5 (00:58→23:17)
[2018-09-27 05:47] LABS: BASO % 0.7 % (0.0-1.0); EOS % 0.4 % (0.0-3.0); HEMATOCRIT 35.6 % (42.0-52.0); HEMOGLOBIN 11.8 g/dl (13.5-17.5); LYMPH # 0.7 10^3/uL (1.5-4.5); LYMPH % 12.7 % (24.0-44.0); MEAN CORPUSCULAR HEMOGLOBIN 31.7 pg (27.0-33.0); MEAN CORPUSCULAR HGB CONC 33.1 g/dl (32.0-36.5); MEAN CORPUSCULAR VOLUME 95.7 fl (80.0-96.0); MONO # 0.6 10^3/uL (0.0-0.8); NEUTROPHILS # 4.2 10^3/uL (1.8-7.7); NEUTROPHILS % 74.8 % (36.0-66.0); PLATELET COUNT, AUTOMATED 163 10^3/uL (150-450); RED BLOOD COUNT 3.72 10^6/uL (4.30-6.10); WHITE BLOOD COUNT 5.7 10^3/uL (4.0-10.0)
[2018-09-27 05:58] LABS: INR 2.54; PROTHROMBIN TIME 27.2 SECONDS (11.8-14.0)
[2018-09-27 06:00] VITALS: BP 145/74
[2018-09-27 06:17] LABS: BLOOD UREA NITROGEN 13 MG/DL (7-18); CALCIUM LEVEL 8.5 MG/DL (8.8-10.2); CARBON DIOXIDE LEVEL 25 MEQ/L (21-32); CHLORIDE LEVEL 108 MEQ/L (98-107); CREATININE FOR GFR 0.63 MG/DL (0.70-1.30); GLOMERULAR FILTRATION RATE > 60.0 (>35); GLUCOSE, FASTING 82 MG/DL (70-100); MAGNESIUM LEVEL 2.3 MG/DL (1.8-2.4); POTASSIUM SERUM 3.7 MEQ/L (3.5-5.1); SODIUM LEVEL 139 MEQ/L (136-145)
[2018-09-27] MEDS: MULTIVITAMINS/MINERALS THERAP 1 TAB PO SCH (08:53)
[2018-09-27] MEDS: FOLIC ACID 1 MG TAB PO SCH (08:53)
[2018-09-27] MEDS: FAMOTIDINE 20 MG TAB PO SCH ×2 (08:53→20:05)
[2018-09-27] MEDS: risperiDONE 0.5 MG TAB PO SCH ×2 (08:53→20:05)
[2018-09-27] MEDS: ASPIRIN 81 MG CHEW TABLET PO SCH (08:53)
[2018-09-27] MEDS: VITAMIN D 1,000 INTERNATIONAL UNITS TABLET PO SCH (08:53)
[2018-09-27] MEDS: TAMSULOSIN 0.4 MG CAP PO SCH (08:53)
[2018-09-27] MEDS: WARFARIN SOD 2.5 MG TAB PO SCH (16:52)
[2018-09-27] MEDS: PRAVASTATIN 20 MG TAB PO SCH (20:05)
[2018-09-28 06:00] VITALS: BP 133/65
[2018-09-28] MEDS: METOPROLOL TART 25 MG TABLET PO SCH ×5 (06:22→23:55)
[2018-09-28 06:51] LABS: BASO % 0.5 % (0.0-1.0); HEMATOCRIT 36.3 % (42.0-52.0); HEMOGLOBIN 11.8 g/dl (13.5-17.5); LYMPH # 0.9 10^3/uL (1.5-4.5); LYMPH % 14.8 % (24.0-44.0); MEAN CORPUSCULAR HEMOGLOBIN 32.3 pg (27.0-33.0); MEAN CORPUSCULAR HGB CONC 32.5 g/dl (32.0-36.5); MEAN CORPUSCULAR VOLUME 99.5 fl (80.0-96.0); MONO # 0.5 10^3/uL (0.0-0.8); MONO % 8.9 % (0.0-5.0); NEUTROPHILS # 4.6 10^3/uL (1.8-7.7); NEUTROPHILS % 75.5 % (36.0-66.0); PLATELET COUNT, AUTOMATED 172 10^3/uL (150-450); RED BLOOD COUNT 3.65 10^6/uL (4.30-6.10); WHITE BLOOD COUNT 6.1 10^3/uL (4.0-10.0)
[2018-09-28 06:58] LABS: INR 2.36; PROTHROMBIN TIME 25.6 SECONDS (11.8-14.0)
[2018-09-28 07:03] LABS: BLOOD UREA NITROGEN 13 MG/DL (7-18); CALCIUM LEVEL 8.3 MG/DL (8.8-10.2); CARBON DIOXIDE LEVEL 26 MEQ/L (21-32); CHLORIDE LEVEL 108 MEQ/L (98-107); CREATININE FOR GFR 0.56 MG/DL (0.70-1.30); GLOMERULAR FILTRATION RATE > 60.0 (>35); GLUCOSE, FASTING 82 MG/DL (70-100); MAGNESIUM LEVEL 2.4 MG/DL (1.8-2.4); POTASSIUM SERUM 3.7 MEQ/L (3.5-5.1); SODIUM LEVEL 140 MEQ/L (136-145)
[2018-09-28] MEDS: ASPIRIN 81 MG CHEW TABLET PO SCH (10:07)
[2018-09-28] MEDS: risperiDONE 0.5 MG TAB PO SCH ×2 (10:07→21:25)
[2018-09-28] MEDS: TAMSULOSIN 0.4 MG CAP PO SCH (10:07)
[2018-09-28] MEDS: MULTIVITAMINS/MINERALS THERAP 1 TAB PO SCH (10:07)
[2018-09-28] MEDS: VITAMIN D 1,000 INTERNATIONAL UNITS TABLET PO SCH (10:08)
[2018-09-28] MEDS: FAMOTIDINE 20 MG TAB PO SCH ×2 (10:08→21:25)
[2018-09-28] MEDS: FOLIC ACID 1 MG TAB PO SCH (10:08)
[2018-09-28] MEDS: WARFARIN SOD 2.5 MG TAB PO SCH (17:23)
[2018-09-28] MEDS: PRAVASTATIN 20 MG TAB PO SCH (21:25)
[2018-09-29 06:00] VITALS: BP 159/81
[2018-09-29] MEDS: METOPROLOL TART 25 MG TABLET PO SCH ×3 (06:16→17:45)
[2018-09-29 06:38] LABS: BASO % 0.5 % (0.0-1.0); HEMATOCRIT 37.3 % (42.0-52.0); HEMOGLOBIN 12.3 g/dl (13.5-17.5); LYMPH % 15.6 % (24.0-44.0); MEAN CORPUSCULAR HEMOGLOBIN 32.3 pg (27.0-33.0); MEAN CORPUSCULAR VOLUME 97.9 fl (80.0-96.0); MONO # 0.5 10^3/uL (0.0-0.8); MONO % 8.2 % (0.0-5.0); NEUTROPHILS # 4.9 10^3/uL (1.8-7.7); NEUTROPHILS % 75.4 % (36.0-66.0); PLATELET COUNT, AUTOMATED 168 10^3/uL (150-450); RED BLOOD COUNT 3.81 10^6/uL (4.30-6.10); WHITE BLOOD COUNT 6.5 10^3/uL (4.0-10.0)
[2018-09-29 06:49] LABS: INR 2.21; PROTHROMBIN TIME 24.3 SECONDS (11.8-14.0)
[2018-09-29 06:55] LABS: BLOOD UREA NITROGEN 12 MG/DL (7-18); CALCIUM LEVEL 8.8 MG/DL (8.8-10.2); CARBON DIOXIDE LEVEL 30 MEQ/L (21-32); CHLORIDE LEVEL 105 MEQ/L (98-107); CREATININE FOR GFR 0.58 MG/DL (0.70-1.30); GLOMERULAR FILTRATION RATE > 60.0 (>35); GLUCOSE, FASTING 90 MG/DL (70-100); MAGNESIUM LEVEL 2.3 MG/DL (1.8-2.4); POTASSIUM SERUM 3.7 MEQ/L (3.5-5.1); SODIUM LEVEL 140 MEQ/L (136-145)
[2018-09-29] MEDS: ASPIRIN 81 MG CHEW TABLET PO SCH (08:50)
[2018-09-29] MEDS: VITAMIN D 1,000 INTERNATIONAL UNITS TABLET PO SCH (08:50)
[2018-09-29] MEDS: FOLIC ACID 1 MG TAB PO SCH (08:51)
[2018-09-29] MEDS: TAMSULOSIN 0.4 MG CAP PO SCH (08:51)
[2018-09-29] MEDS: MULTIVITAMINS/MINERALS THERAP 1 TAB PO SCH (08:51)
[2018-09-29] MEDS: FAMOTIDINE 20 MG TAB PO SCH ×2 (08:51→20:18)
[2018-09-29] MEDS: risperiDONE 0.5 MG TAB PO SCH ×2 (08:51→20:17)
[2018-09-29] MEDS: WARFARIN SOD 2.5 MG TAB PO SCH (17:46)
[2018-09-29] MEDS: PRAVASTATIN 20 MG TAB PO SCH (20:17)
[2018-09-30] MEDS: METOPROLOL TART 25 MG TABLET PO SCH ×5 (00:20→23:40)
[2018-09-30 05:31] LABS: BASO % 0.6 % (0.0-1.0); HEMATOCRIT 34.1 % (42.0-52.0); HEMOGLOBIN 11.3 g/dl (13.5-17.5); LYMPH # 0.8 10^3/uL (1.5-4.5); LYMPH % 11.1 % (24.0-44.0); MEAN CORPUSCULAR HEMOGLOBIN 32.4 pg (27.0-33.0); MEAN CORPUSCULAR HGB CONC 33.1 g/dl (32.0-36.5); MEAN CORPUSCULAR VOLUME 97.7 fl (80.0-96.0); MONO # 0.7 10^3/uL (0.0-0.8); MONO % 9.2 % (0.0-5.0); NEUTROPHILS # 5.6 10^3/uL (1.8-7.7); NEUTROPHILS % 78.7 % (36.0-66.0); PLATELET COUNT, AUTOMATED 159 10^3/uL (150-450); RED BLOOD COUNT 3.49 10^6/uL (4.30-6.10); WHITE BLOOD COUNT 7.1 10^3/uL (4.0-10.0)
[2018-09-30 06:00] VITALS: BP 155/82
[2018-09-30 06:00] LABS: BLOOD UREA NITROGEN 17 MG/DL (7-18); CALCIUM LEVEL 8.8 MG/DL (8.8-10.2); CARBON DIOXIDE LEVEL 29 MEQ/L (21-32); CHLORIDE LEVEL 107 MEQ/L (98-107); CREATININE FOR GFR 0.69 MG/DL (0.70-1.30); GLOMERULAR FILTRATION RATE > 60.0 (>35); GLUCOSE, FASTING 78 MG/DL (70-100); MAGNESIUM LEVEL 2.3 MG/DL (1.8-2.4); SODIUM LEVEL 140 MEQ/L (136-145)
[2018-09-30 10:00] VITALS: BP 119/61
[2018-09-30] MEDS: MULTIVITAMINS/MINERALS THERAP 1 TAB PO SCH (11:38)
[2018-09-30] MEDS: FOLIC ACID 1 MG TAB PO SCH (11:38)
[2018-09-30] MEDS: VITAMIN D 1,000 INTERNATIONAL UNITS TABLET PO SCH (11:38)
[2018-09-30] MEDS: ASPIRIN 81 MG CHEW TABLET PO SCH (11:38)
[2018-09-30] MEDS: risperiDONE 0.5 MG TAB PO SCH ×2 (11:39→21:47)
[2018-09-30] MEDS: TAMSULOSIN 0.4 MG CAP PO SCH (11:39)
[2018-09-30] MEDS: FAMOTIDINE 20 MG TAB PO SCH ×2 (11:39→21:47)
[2018-09-30 14:00] VITALS: BP 143/85
[2018-09-30] MEDS: WARFARIN SOD 2.5 MG TAB PO SCH (17:21)
[2018-09-30] MEDS: PRAVASTATIN 20 MG TAB PO SCH (21:47)
[2018-09-30 22:00] VITALS: BP 137/85
[2018-10-01] MEDS: METOPROLOL TART 25 MG TABLET PO SCH ×5 (05:17→23:46)
[2018-10-01 06:00] VITALS: BP 140/77
[2018-10-01 06:40] LABS: BASO % 0.3 % (0.0-1.0); HEMOGLOBIN 11.8 g/dl (13.5-17.5); LYMPH # 0.5 10^3/uL (1.5-4.5); LYMPH % 5.3 % (24.0-44.0); MEAN CORPUSCULAR HEMOGLOBIN 31.6 pg (27.0-33.0); MEAN CORPUSCULAR HGB CONC 32.8 g/dl (32.0-36.5); MEAN CORPUSCULAR VOLUME 96.3 fl (80.0-96.0); MONO # 0.7 10^3/uL (0.0-0.8); MONO % 8.1 % (0.0-5.0); NEUTROPHILS # 7.6 10^3/uL (1.8-7.7); NEUTROPHILS % 85.8 % (36.0-66.0); PLATELET COUNT, AUTOMATED 169 10^3/uL (150-450); RED BLOOD COUNT 3.74 10^6/uL (4.30-6.10); WHITE BLOOD COUNT 8.9 10^3/uL (4.0-10.0)
[2018-10-01 06:56] LABS: BLOOD UREA NITROGEN 14 MG/DL (7-18); CALCIUM LEVEL 8.2 MG/DL (8.8-10.2); CARBON DIOXIDE LEVEL 28 MEQ/L (21-32); CHLORIDE LEVEL 108 MEQ/L (98-107); CREATININE FOR GFR 0.64 MG/DL (0.70-1.30); GLOMERULAR FILTRATION RATE > 60.0 (>35); GLUCOSE, FASTING 108 MG/DL (70-100); MAGNESIUM LEVEL 2.2 MG/DL (1.8-2.4); POTASSIUM SERUM 3.7 MEQ/L (3.5-5.1); SODIUM LEVEL 141 MEQ/L (136-145)
[2018-10-01] MEDS: MULTIVITAMINS/MINERALS THERAP 1 TAB PO SCH (11:19)
[2018-10-01] MEDS: FAMOTIDINE 20 MG TAB PO SCH ×2 (11:19→20:52)
[2018-10-01] MEDS: VITAMIN D 1,000 INTERNATIONAL UNITS TABLET PO SCH (11:19)
[2018-10-01] MEDS: ASPIRIN 81 MG CHEW TABLET PO SCH (11:19)
[2018-10-01] MEDS: risperiDONE 0.5 MG TAB PO SCH ×2 (11:20→20:52)
[2018-10-01] MEDS: FOLIC ACID 1 MG TAB PO SCH (11:20)
[2018-10-01] MEDS: TAMSULOSIN 0.4 MG CAP PO SCH (11:20)
[2018-10-01] MEDS: WARFARIN SOD 2.5 MG TAB PO SCH (17:07)
[2018-10-01 18:17] LABS: INR 2.54; PROTHROMBIN TIME 27.2 SECONDS (11.8-14.0)
[2018-10-01] MEDS: PRAVASTATIN 20 MG TAB PO SCH (20:51)
[2018-10-02] MEDS: METOPROLOL TART 25 MG TABLET PO SCH ×3 (05:26→21:00)
[2018-10-02 06:00] VITALS: BP 132/92
[2018-10-02] MEDS: FOLIC ACID 1 MG TAB PO SCH (09:00)
[2018-10-02] MEDS: TAMSULOSIN 0.4 MG CAP PO SCH (09:00)
[2018-10-02] MEDS: FAMOTIDINE 20 MG TAB PO SCH ×2 (09:00→21:27)
[2018-10-02] MEDS: ASPIRIN 81 MG CHEW TABLET PO SCH (09:00)
[2018-10-02] MEDS: VITAMIN D 1,000 INTERNATIONAL UNITS TABLET PO SCH (09:00)
[2018-10-02] MEDS: risperiDONE 0.5 MG TAB PO SCH ×2 (09:00→21:27)
[2018-10-02] MEDS: MULTIVITAMINS/MINERALS THERAP 1 TAB PO SCH (09:00)
--- NOTE | 2018-10-02 12:42 | IPNPDOC ---
Date Seen The patient was seen on 10/02/18. Progress Note SUBJECTIVE: Patient examined at bedside patient is oriented to person but not place time or situation. No behavioral issues noted overnight still requiring a sitter.No f/c/n/v/abd pain/cp/sob. Overnight the patient reportedly pulled out his Joe catheter which was readjusted it is not draining he did have some hematuria briefly following that PHYSICAL EXAMINATION: VITAL SIGNS: Please see below GENERAL: Resting comfortably in chair eating breakfast, NAD, confused at baseline. Frail cachectic appearing, hunched over, emaciated HEENT: Normocephalic, atraumatic. Supple neck. Bitemporal wasting CARDIOVASCULAR: Rate controlled. Irregular rhythm. Has baseline atrial fibrillation. Ejection click from aortic valve replacement history LUNGS: Clear throughout. No adventitious sounds. EXTREMITIES: Healing Ecchymosis left shoulder flank. Normal ROM ABDOMEN: Soft, nontender, nondistended. MUSCULOSKELETAL: No peripheral edema or calf tenderness. LABORATORY: Please see below No new imaging. ASSESSMENT AND PLAN: 1. Syncope and collapse with dehydration, physical deconditioning. He has not had any further episodes during this stay in the hospital. Continue current PT and OT. He has a history of baseline atrial fibrillation and atrial flutter. He will Likely require fci placement. During his stay he has had bouts of rapid A. fib is certainly possible presenting syncope was secondary to one of these rapid bouts. I'll increase his metoprolol from 25 mg every 6 hours to 75 mg by mouth twice a day with holding parameters he appears to have enough blood pressure to allow this trial 2. Poor oral intake with severe protein calorie malnutrition. Continues to have poor po intake. Likely worsened by baseline dementia. BMI 14, overall is frail, bitemporal wasting, cachectic looking. He is unable to care for himself, lives alone at home. information services manager assisting with fci placement. Keep calorie count and encourage by mouth intake. I will place his speech therapy eval as he did have some significant gurgling this morning I want to ensure that he is not aspirating 3. Agitation with baseline advanced dementia and . Started on Haldol during this stay. Mentation improved since increasing Risperdal to 0.5 bid. 4. Left distal clavicular fracture. ROM improving. Continue PT & OT. Per Ortho recommendation on admission, no surgical intervention, Outpatient follow-up in clinic. 5. History of mechanical aortic valve replacement times two, chronically on Coumadin. INR goal 2.5 to 3.5. Therapeutic 6. Hyperlipidemia. Continue atorvastatin. 7. Gastroesophageal reflux disease (GERD). Continue famotidine. 8. Hypertension. Controlled on Lopressor. 9. Benign prostatic hypertrophy (BPH). Continue Flomax. It occurs to his hematuria I will check a CBC BMP he did have some blood loss related to traumatic pulling on his Joe. It is draining clear yellow urine at this time 10. 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 Continue aspirin, statin and beta juan david. Curiously he is not on an MINDI inhibitor loop diuretic or spironolactone. His volume status appears to be optimized. It is unclear to me the reasons for this will defer to his outpatient consumer lending manager. 11. Atrial fibrillation/flutter: Rate controlled with Lopressor anticoagulated with Coumadin, titrating up on his Lopressor as outlined above DVT prophylaxis: Coumadin. CODE STATUS: DO NOT RESUSCITATE, DO NOT INTUBATE. DISPOSITION: fci placement VS, I&O, 24H, [facility] Vital Signs/I&O Vital Signs Date Time Temp Pulse Resp B/P (MAP) Pulse Ox O2 Delivery O2 Flow Rate FiO2 10/02/18 11:27 72 138/72 10/02/18 06:00 98.0 18 96 I&O- Last 24 Hours up to 6 AM 10/02/18 05:59 Intake Total 110 ml Output Total 850 ml Balance -740 ml Laboratory Data 24H LABS Laboratory Tests 2 10/01/18 17:45: Prothrombin Time 27.2H, Prothromb Time International Ratio 2.54 HARIS VALLEJO MD Oct 02, 2018 12:42
[2018-10-02 13:38] LABS: HEMATOCRIT 38.1 % (42.0-52.0); HEMOGLOBIN 12.5 g/dl (13.5-17.5); MEAN CORPUSCULAR HEMOGLOBIN 31.5 pg (27.0-33.0); MEAN CORPUSCULAR HGB CONC 32.8 g/dl (32.0-36.5); PLATELET COUNT, AUTOMATED 162 10^3/uL (150-450); RED BLOOD COUNT 3.97 10^6/uL (4.30-6.10); WHITE BLOOD COUNT 9.2 10^3/uL (4.0-10.0)
[2018-10-02 14:00] VITALS: BP 118/69
[2018-10-02 14:00] LABS: BLOOD UREA NITROGEN 21 MG/DL (7-18); CARBON DIOXIDE LEVEL 26 MEQ/L (21-32); CHLORIDE LEVEL 106 MEQ/L (98-107); CREATININE FOR GFR 0.86 MG/DL (0.70-1.30); GLOMERULAR FILTRATION RATE > 60.0 (>35); GLUCOSE, FASTING 157 MG/DL (70-100); POTASSIUM SERUM 3.7 MEQ/L (3.5-5.1); SODIUM LEVEL 140 MEQ/L (136-145)
[2018-10-02] MEDS: SALIVA SUBSTITUTE(MOUTHKOTE) BTL MT SCH ×2 (17:00→21:35)
[2018-10-02] MEDS: WARFARIN SOD 2.5 MG TAB PO SCH (17:00)
[2018-10-02] MEDS ORDERED: LevoFLOXacin IV 750 MG in APPROPRIATE DILUENT 1 EA IV SCH (18:00)
[2018-10-02 18:18] LABS: BLOOD UREA NITROGEN 20 MG/DL (7-18); CALCIUM LEVEL 8.6 MG/DL (8.8-10.2); CARBON DIOXIDE LEVEL 30 MEQ/L (21-32); CHLORIDE LEVEL 107 MEQ/L (98-107); CREATININE FOR GFR 0.64 MG/DL (0.70-1.30); GLOMERULAR FILTRATION RATE > 60.0 (>35); GLUCOSE, FASTING 136 MG/DL (70-100); HEMATOCRIT 35.8 % (42.0-52.0); HEMOGLOBIN 11.6 g/dl (13.5-17.5); MEAN CORPUSCULAR HGB CONC 32.4 g/dl (32.0-36.5); MEAN CORPUSCULAR VOLUME 98.9 fl (80.0-96.0); PLATELET COUNT, AUTOMATED 147 10^3/uL (150-450); POTASSIUM SERUM 3.9 MEQ/L (3.5-5.1); RED BLOOD COUNT 3.62 10^6/uL (4.30-6.10); SODIUM LEVEL 141 MEQ/L (136-145); WHITE BLOOD COUNT 9.5 10^3/uL (4.0-10.0)
[2018-10-02] MEDS: NS 1,000 ML IV SCH (18:35)
[2018-10-02] MEDS: ACETAMINOPHEN TAB 650MG DOSE (2X325MG) PO PRN (19:17)
[2018-10-02 21:00] VITALS: BP 105/60
[2018-10-02] MEDS: PRAVASTATIN 20 MG TAB PO SCH (21:27)
[2018-10-02] MEDS ORDERED: FUROSEMIDE 20 MG/2 ML VIAL (J1940) IV ONE (23:30)
[2018-10-03] VITALS: BP 152/80
[2018-10-03] MEDS: ACETAMINOPHEN TAB 650MG DOSE (2X325MG) PO PRN (01:29)
[2018-10-03] MEDS ORDERED: LORazepam 2 MG/ML VIAL (J2060) IV STA (05:02)
[2018-10-03] MEDS ORDERED: SCOPOLAMINE 1MG TRANSDERMAL PATCH TOP PRN (05:15)
[2018-10-03] MEDS ORDERED: ALBUTEROL SULFATE 2.5 MG/0.5 ML INH NEB SOLN NEB PRN (05:15)
[2018-10-03] MEDS: NS 1,000 ML IV SCH (05:29)
[2018-10-03] MEDS: METOPROLOL TART 25 MG TABLET PO SCH (07:46)
[2018-10-03] MEDS: SALIVA SUBSTITUTE(MOUTHKOTE) BTL MT SCH ×2 (07:46→13:00)
[2018-10-03] MEDS: TAMSULOSIN 0.4 MG CAP PO SCH (07:46)
[2018-10-03] MEDS: FOLIC ACID 1 MG TAB PO SCH (07:46)
[2018-10-03] MEDS: ASPIRIN 81 MG CHEW TABLET PO SCH (07:46)
[2018-10-03] MEDS: MULTIVITAMINS/MINERALS THERAP 1 TAB PO SCH (07:47)
[2018-10-03] MEDS: FAMOTIDINE 20 MG TAB PO SCH (07:47)
[2018-10-03] MEDS: VITAMIN D 1,000 INTERNATIONAL UNITS TABLET PO SCH (07:47)
[2018-10-03] MEDS: risperiDONE 0.5 MG TAB PO SCH ×2 (07:47→19:49)
--- NOTE | 2018-10-03 08:16 | REP ---
REASON FOR EXAM: Aspiration pneumonia. COMPARISON EXAM: 09/14/2018. There are bilateral lower lung field opacities which appears essentially unchanged. The technique utilized in obtaining the radiograph has magnified the cardiac silhouette and accentuated the interstitial markings. There is global cardiomegaly accentuated by technique. There is no change in the osseous structures. IMPRESSION: No significant change other than technique. Electronically Signed by Rodney Richardson DO 10/03/2018 11:20 A
[2018-10-03] MEDS: MORPHINE 10MG/0.5ML ORAL CONCENTRATE SOLUTION U/D SL PRN ×4 (08:26→19:50)
[2018-10-03] MEDS: LORazepam 1 MG TAB PO PRN ×2 (08:54→12:53)
[2018-10-03] MEDS ORDERED: OXYMETAZOLINE NASAL SPRAY (AFRIN) PRN (12:00)
[2018-10-03] MEDS ORDERED: LORazepam 2 MG/ML VIAL (J2060) IV PRN (14:00)
--- NOTE | 2018-10-03 14:00 | IPNPDOC ---
Date Seen The patient was seen on 10/03/18. Progress Note SUBJECTIVE: Early this morning because the patient needed increased oxygen, his family was contacted and decided to make the patient SHIRT HEMMER. We have discontinued all of his medications. Physical exam deferred Chest X-ray 10/02/18: There are bilateral lower lung field opacities which appears essentially unchanged. The technique utilized in obtaining the radiograph has magnified the cardiac silhouette and accentuated the interstitial markings. There is global cardiomegaly accentuated by technique. There is no change in the osseous structures. Echocardiogram 09/14/18: 1. Moderate global left ventricular systolic dysfunction with regional wall motion abnormalities consistent with probably underlying coronary artery disease. 2. Mechanical prosthetic aortic valve with normal function but with trace to mild aortic regurgitation and possible minimal perivalvular leak. 3. Mildly enlarged left atrium with mitral annulus calcification and moderate mitral regurgitation. 4. Moderate tricuspid regurgitation with moderate pulmonary hypertension and dilated right heart chambers. DVT prophylaxis ordered?: No, SHIRT HEMMER protocol. ASSESSMENT AND PLAN: Patient is a 83-year-old white male with a past medical history of dementia, mechanical aortic valve replacement times two, hyperlipidemia, GERD, hypertension, and BPH presented to the ED due to syncope PROBLEMS: 1. Syncope/collapse with dehydration 2. Poor oral intake with severe protein calorie malnutrition 3. Agitation with baseline advanced dementia and sundowning 4. Left distal clavicular fracture 5. History of mechanical aortic valve replacement x2 6. Hyperlipidemia 7. Gastroesophageal reflux disease 8. Hypertension 9. Benign prostatic hypertrophy 10. Coronary artery disease with ischemic cardiomyopathy (EF 30-35%) 11. Atrial fibrillation/flutter DISPOSITION: Patient is on SHIRT HEMMER protocol. We will continue to make sure that he and his family members are comfortable. I saw and evaluated the patient. I agree with the findings and plan of care as documented in the above note VS, I&O, 24H, Fishbone Vital Signs/I&O Vital Signs Date Time Temp Pulse Resp B/P (MAP) Pulse Ox O2 Delivery O2 Flow Rate FiO2 10/03/18 07:30 15.0 10/03/18 00:00 112 22 152/80 (104) 88 50 10/02/18 14:00 98.4 I&O- Last 24 Hours up to 6 AM 10/03/18 06:00 Intake Total 906 ml Output Total 1800 ml Balance -894 ml Laboratory Data 24H LABS Laboratory Tests 2 10/02/18 17:26: Nucleated Red Blood Cells % (auto) 0.0, Anion Gap 4L, Glomerular Filtration Rate > 60.0, Blood Urea Nitrogen 20H, Creatinine 0.64L, Sodium Level 141, Potassium Level 3.9, Chloride Level 107, Carbon Dioxide Level 30, Calcium Level 8.6L CBC/BMP Laboratory Tests 10/02/18 17:26 Red Blood Count 3.62 L, Mean Corpuscular Volume 98.9 H, Mean Corpuscular Hemoglobin 32.0, Mean Corpuscular Hemoglobin Concent 32.4, Red Cell Distribution Width 15.5 H, Calcium Level 8.6 L DIANA MONTIEL S-3 Oct 03, 2018 14:00 HARIS VALLEJO MD Oct 06, 2018 14:48
[2018-10-03] MEDS: WARFARIN SOD 2.5 MG TAB PO SCH (16:04)
[2018-10-04] MEDS: risperiDONE 0.5 MG TAB PO SCH ×2 (09:00→21:00)
[2018-10-04] MEDS: WARFARIN SOD 2.5 MG TAB PO SCH (17:00)
--- NOTE | 2018-10-04 17:57 | DS.PDOC ---
Discharge Summary General Date of Admission Sep 16, 2018 at 15:32 Date of Discharge 10/04/18 Discharge Summary cause of :Aspiration SECONDARY DIAGNOSIS: 1.Advanced dementia 2.Severe protein calorie malnutrition 3.Clavicular fracture 4.Mechanical aortic valve 5 dyslipidemia 6. Gastroesophageal reflux disease 7 hypertension 8 BPH 9 coronary artery disease 10 atrial fibrillation PROCEDURES PERFORMED DURING STAY: None. CONSULTANTS: Orthopedic surgery Dr. Moura all HOSPITAL COURSE: 83-year-old man who previously lived alone and had a syncopal episode resulting be secondary to dehydration and poor nutrition related to advanced dementia. He was admitted to Hospital services are needed nursing home placement in a locked unit however his hospital course, complicated by aspiration family elected to pursue comfort measures only this was completed and signed patient 10/04/2018. Vital Signs/I&Os Vital Signs Date Time Temp Pulse Resp B/P (MAP) Pulse Ox O2 Delivery O2 Flow Rate FiO2 10/04/18 09:00 15.0 10/03/18 00:00 112 22 152/80 (104) 88 50 10/02/18 14:00 98.4 I&O- Last 24 Hours up to 6 AM 10/04/18 06:00 Intake Total 0 ml Output Total 400 ml Balance -400 ml Discharge Medications Scheduled Acetaminophen (Acetaminophen ER) 650 Mg Tablet.er, 1,300 MG PO DAILY, (Reported) Amlodipine Besylate (Amlodipine Besylate) 5 Mg Tablet, 5 MG PO DAILY, (Reported) Aspirin (Aspir 81) 81 Mg Tab, 81 MG PO QHS, (Reported) Cholecalciferol (Vitamin D3) (Vitamin D3) 1,000 Unit Tab, 1,000 UNIT PO DAILY, (Reported) Folic Acid (Folic Acid) 1 Mg Tab, 1 MG PO DAILY, (Reported) Mirtazapine (Mirtazapine) 15 Mg Tab.rapdis, 15 MG PO QHS, (Reported) Multivitamins (Thera M Plus Tablet) 1 Tab Tab, 1 TAB PO DAILY, (Reported) Pravastatin Sodium (Pravastatin Sodium) 40 Mg Tab, 40 MG PO QHS, (Reported) Ranitidine HCl (Ranitidine HCl) 150 Mg Tab, 1 TAB PO BID, (Reported) Tamsulosin Hcl (Tamsulosin HCl) 0.4 Mg Capsule, 0.4 MG PO DAILY, (Reported) Warfarin Sodium (Warfarin Sodium) 5 Mg Tablet, 2.5 MG PO ASDIRECTED, (Reported) FAMILY [employer] STATE PATIENT WAS TOLD TO TAKE .5 OF HIS 5MG TABLET TODAY ONLY. DR. CHAUHAN TOLD HIM NOT TO TAKE ANY MORE THIS WEEKEND UNTIL HIS SCHEDULED APPOINTMENT ON SUNDAY. 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
== END 2018-10-04 17:35 | disposition expired | DRG 308 ==
LOC: M ED 15:55 → M ED INP 23:40 → M MSPAV 09-14 02:13 → OBSVTOIN 09-16 15:32 → INTOOBSV 09-16 15:32 → M MSPAV 09-16 18:54
PROVIDERS: ADMIT Internal Medicine; ATTEND Internal Medicine
DX: I48.91 Unspecified atrial fibrillation (principal); E43 Unspecified severe protein-calorie malnutrition; I50.23 Acute on chronic systolic (congestive) heart failure; J69.0 Pneumonitis due to inhalation of food and vomit; E87.0 Hyperosmolality and hypernatremia; Z68.1 Body mass index [BMI] 19.9 or less, adult; M62.82 Rhabdomyolysis; I48.92 Unspecified atrial flutter; R09.02 Hypoxemia; Z51.5 Encounter for palliative care; Z66 Do not resuscitate; N40.1 Benign prostatic hyperplasia with lower urinary tract symptoms; I27.20 Pulmonary hypertension, unspecified; R55 Syncope and collapse; E86.0 Dehydration; I08.1 Rheumatic disorders of both mitral and tricuspid valves; F03.90 Unspecified dementia, unspecified severity, without behavioral disturbance, psychotic disturbance, mood disturbance, and anxiety; R33.9 Retention of urine, unspecified; S42.022A Displaced fracture of shaft of left clavicle, initial encounter for closed fracture; R13.10 Dysphagia, unspecified; Z79.01 Long term (current) use of anticoagulants; Z79.82 Long term (current) use of aspirin; Z79.899 Other long term (current) drug therapy; Z99.81 Dependence on supplemental oxygen; Z91.041 Radiographic dye allergy status; Z91.013 Allergy to seafood; W19.XXXA Unspecified fall, initial encounter; Y92.017 Garden or yard in single-family (private) house as the place of occurrence of the external cause; Z95.2 Presence of prosthetic heart valve

== ENCOUNTER → 2018-09-13 | Outpatient (REF) | payer MEDICARE ==
[~2018-09-13] MED LIST changes: +ACET650T15 PO; +AMLO5TAB6 PO; +MIRT1TAB15 PO; +PATIENT COMMENTS; +TAMS1CAP17 PO; +WARF-23 PO
[2018-09-13 16:39] LABS: BASO % 0.3 % (0.0-1.0); HEMOGLOBIN 14.2 g/dl (13.5-17.5); LYMPH # 0.4 10^3/uL (1.5-4.5); LYMPH % 5.6 % (24.0-44.0); MEAN CORPUSCULAR HGB CONC 32.3 g/dl (32.0-36.5); MEAN CORPUSCULAR VOLUME 99.1 fl (80.0-96.0); MONO # 0.6 10^3/uL (0.0-0.8); MONO % 8.2 % (0.0-5.0); NEUTROPHILS # 5.8 10^3/uL (1.8-7.7); NEUTROPHILS % 85.3 % (36.0-66.0); PLATELET COUNT, AUTOMATED 196 10^3/uL (150-450); RED BLOOD COUNT 4.44 10^6/uL (4.30-6.10); WHITE BLOOD COUNT 6.8 10^3/uL (4.0-10.0)
[2018-09-13 16:40] LABS: INR 4.5
== END ==
LOC: M LAB REF 16:05
PROVIDERS: ATTEND Nurse Practitioner Adult Health
DX: D72.9 Disorder of white blood cells, unspecified (principal); I48.0 Paroxysmal atrial fibrillation; Z79.01 Long term (current) use of anticoagulants